=== PATIENT | male | born 1940 | race Caucasian/White ===

== ENCOUNTER 2016-06-28 10:01 | Outpatient (RCR) | payer MEDICARE ==
[~2016-06-28 10:01] MED LIST: ACHD5005 PO; ACYC800T PO; CYCL10TA9 PO; DOXY100C2 PO; FULVESTRANT 250 MG/5 ML SYR (CANCER CENTER) IM SCH; HCT25T; HYDR-2890 PO; LRT10T; NAPR-243 PO; PROP1TAB77; SULF-222 PO; [UNRECOGNIZED DRUG - OTHER]
== END 2016-07-25 09:30 | disposition home or self-care (01) ==
PROVIDERS: ATTEND Podiatrist
DX: Z47.1 Aftercare following joint replacement surgery (principal); Z96.661 Presence of right artificial ankle joint

== ENCOUNTER 2016-08-07 13:02 | Emergency (ER) | payer MEDICARE ==
[~2016-08-07] VITALS: Ht 182.9 cm; Wt 122.5 kg
[~2016-08-07 13:02] MED LIST changes: -FULVESTRANT 250 MG/5 ML SYR (CANCER CENTER) IM SCH
--- OUTSIDE RECORDS SUMMARY | 2016-08-07 13:07 | XMS REPORT | Continuity of Care Document ---
Author Author [facility] Organization [facility] Address Unknown Phone Unavailable Care Team Providers Care Farm Loan Inspector Name Role Phone NANCY ZEE DPM PCP Insurance Providers Payer Name Policy Number Subscriber Name Relationship [employer] [id number] [place] 18 Self / Same As Patient Advance Directives Directive Response Recorded Date/Time Advance Directives No 04/17/15 7:22am Health Care Power of District Recruiter No 04/17/15 7:22am Organ Donor No 04/17/15 7:22am Problems Active Problems Medical Problem Onset Date Status Contusion of left knee Unknown Acute Contusion of left thigh Unknown Acute Contusion, abdominal wall Unknown Acute Fall with injury Unknown Acute Wheezing Unknown Acute Medications Current Home Medications Medication Dose Units Route Directions Days/Qty Instructions Start Date Hydrochlorothiazide 25 Mg Daily 04/25/07 Loratadine 10 Mg Daily 04/25/07 Hydrocodone Bit/Acetaminophen 1 Each 1 Each Oral As Needed 30 11/22/11 Cyclobenzaprine Hcl (Flexeril) 10 Mg 1 Each Oral Twice A Day Acyclovir 800 Mg 800 Mg Oral As Directed 7 Days 5 times per day 09/16/13 Trimethoprim/Sulfamethoxazole 1 Ea 1 Ea Oral Twice A Day 7 Days Acetaminophen/Hydrocodone Bitart 1 Each 1 Each Oral Every 4HRS 15 Past Home Medications Medication Directions Ordered Status Naproxen 500 Mg Tablet, 1 Each Oral Twice A Day 09/13/12 Discontinued Doxycycline Hyclate (Vibramycin) 100 Mg Capsule, 1 Each Oral Twice A Day Discontinued Acetaminophen/Hydrocodone Bitart (Lorcet 5/325MG) 1 Tab Tablet, 1 - 2 Tab Oral Every 6 Hours 09/23/12 Discontinued Social History Social History Problem Response Recorded Date/Time Alcohol Use Occasionally Uses 03/09/2015 12:02pm Recreational Drug Use No 03/09/2015 12:02pm Recent Foreign Travel No 05/17/2016 10:08am Do you dip or chew tobacco? Yes 03/09/2015 12:02pm Hospital Discharge Instructions No hospital discharge instructions. Plan of Care Prescriptions See Medication Section Functional Status No functional status results. Allergies, Adverse Reactions, Alerts Allergen Type Severity Reaction Status Last Updated Morphine Allergy Unknown Active 04/25/07 Codeine Allergy Unknown Active 04/25/07 Immunizations No immunization records. Vital Signs No known vital signs results. Results No known relevant diagnostic tests, laboratory data and/or discharge summary. Procedures No known history of procedures. Encounters Encounter Location Arrival/Admit Date Discharge/Depart Date Attending Provider Discharged Recurring [facility] 06/28/16 10:01am 9:30am NANCY ZEE DPM
[2016-08-07] MEDS ORDERED: SERTRALINE (13:29)
[2016-08-07] MEDS ORDERED: METOPROLOL (13:29)
[2016-08-07] MEDS ORDERED: AMLODIPINE (13:29)
[2016-08-07] MEDS ORDERED: NAPROSYN (13:29)
[2016-08-07] MEDS ORDERED: HYDROCODONE/APAP (13:29)
[2016-08-07] MEDS ORDERED: GABAPENTIN (13:29)
[2016-08-07] MEDS ORDERED: fentaNYL INJECTION 100 MCG/2 ML AMP IVP STA (13:31)
--- NOTE | 2016-08-07 13:31 | ED EENT ---
History of Present Illness General Chief Complaint: Eye Problems Stated Complaint: DOUBLE VISION Nursing Triage Note: PT TO ED 8 W/ C/O DOUBLE VISION TO LT EYE ONSET X1 WK. DENIES INJURY. DOES REPORT HX OF LASIK. ALSO C/O PAIN TO LT SIDE OF FACE ALSO X1 WK. CONTINUES TO REPORT BILAT FACIAL NUMBNESS X1 YR Source: patient Exam Limitations: no limitations History of Present Illness Time seen by provider: 13:26 Initial Comments Patient presents with one week of double vision without any other Signs. He lives with his and she has not noted any slurring speech or having any facial asymmetry according to the patient. He is unaccompanied today to the ER. He did state he had some sinus pressure and pain and nasal congestion for the past 2-3 weeks that has progressively gotten worse and now he has pain in his left face and a little bit of swelling on the left side of. He denies fevers, nausea, vomiting, diarrhea, rash, ear pain. He does have ear fullness and little hard of hearing especially on the right side. He states the double vision came on progressively and is just continued to get worse starting sometime about 5-7 days ago. He denies any falls, problems with his gait, confusion, facial asymmetry, weakness, numbness, tingling, dysphagia. Patient takes [place] for his back pain and he took a dose this morning because of the pain but he still significantly having pain. Allergies and Home Medications Allergies Coded Allergies: codeine (Verified Allergy, Unknown, 04/25/07) morphine (Verified Allergy, Unknown, 04/25/07) Home Medications (Reported) (Reported) (Reported) (Reported) (Reported) (Reported) Amoxicillin/Potassium Clav 1 Each Tablet #18 1 EACH PO BID Prescribed by: YVAN MORALES on 08/07/16 1549 Review of Systems Constitutional: No chills, No diaphoresis, No fever, No malaise Eyes: Denies Blindness, Blurred VisionDenies Foreign Body Sensation, Denies Inflammation, Denies Pain, Denies Photophobia, Denies Previous Injury, Vision ChangesDenies Glasses Ears: Denies Dizziness, Denies Pain Nose: congestion paindenies purulent discharge Mouth: denies pain, denies swelling Throat: denies pain, denies swelling, denies neck stiffness, denies hoarse, denies painful swallowing, denies difficulty with fluids Respiratory: No cough, No phlegm, No wheezing Cardiovascular: No chest pain, No edema Gastrointestinal: No abdominal pain, No constipation, No diarrhea Musculoskeletal: back painNo joint pain Skin: No pruritus, No rash, other (swelling left side of face) Neurological: HeadacheDenies Numbness, Denies Paresthesia, Denies Seizure, Denies Tingling, Denies Weakness Past Rrfxvid-Vzuqpm-Xmmlft Hx Patient Social History Alcohol Use: Occasionally Uses Recreational Drug Use: No Smoking Status: Former Smoker Former Smoker/When Quit: Oct 05, 2010 Recent Foreign Travel: No Contact w/Someone Who Travel: No Recent Infectious Disease Expo: No Recent Hopitalizations: No Immunizations Up To Date Tetanus Booster (TDap): Unknown Date of Pneumonia Vaccine: Mar 19, 2012 Date of Influenza Vaccine: Mar 19, 2012 Seasonal Allergies Seasonal Allergies: Yes Surgeries HX Surgeries: Yes (BILAT KNEES, SHOULDER, HERNIA, ANKLE, APPY, LASIK) Surgeries: Abdominal, Appendectomy, Eye Surgery, Orthopedic Respiratory Hx Respiratory Disorders: No Cardiovascular Hx Cardiac Disorders: Yes Cardiac Disorders: Hypertension Neurological Hx Neurological Disorders: No Reproductive System Hx Reproductive Disorders: No Genitourinary Hx Genitourinary Disorders: No Genitourinary Disorders: Prostate Problems Gastrointestinal Hx Gastrointestinal Disorders: No Musculoskeletal Hx Musculoskeletal Disorders: Yes Musculoskeletal Disorders: Arthritis, Chronic Back Pain Endocrine Hx Endocrine Disorders: No HEENT HX ENT Disorders: No Cancer Hx Cancer: No Psychosocial Hx Psychiatric Problems: Yes Behavioral Health Disorders: Sleep Difficulties, Depression Integumentary HX Skin/Integumentary Disorder: No Blood Transfusions Hx Blood Disorders: No Family Medical History Significant Family History: No Pertinent Family Hx Visual Acuity : Eye Location: Bilaterally Vision Acuity Degree: 20/20 Physical Exam Vital Signs Vital Sign - Last 12Hours 08/07/16 13:22 Temp 98.1 Pulse 85 Resp 20 B/P 179/122 Pulse Ox 97 O2 Delivery Room Air General Appearance: WD/WN no apparent distress Eyes: right eye EOMI, left eye abnormal EOM (left eye no lateral or medial gaze. Vertical up-and-down works.), bilateral eye PERRL, bilateral eye normal inspection Ears: right ear other (sermon impaction), left ear TM normal, left ear canal normal, bilateral ear auricle normal Nose: normal inspectionNo active bleeding, sinus tenderness (left sided maxillary more than frontal; mild edema) Neck: non-tender full range of motion supple normal inspection Cardiovascular: normal peripheral pulses regular rate, rhythm no edema Respiratory: chest non-tender lungs clear normal breath sounds no respiratory distress no accessory muscle use Gastrointestinal: normal bowel sounds non tender soft Neurologic/Psychiatric: alteration specialist II-XII nml as tested alert oriented x 3 Skin: normal color warm/dry Progress/Results/Core Measures Results/Orders Lab Results Laboratory Tests Test 08/07/16 13:53 Range/Units Anion Gap 9 5-14 MMOL/L BUN/Creatinine Ratio 21 Basophils # (Auto) 0.0 0.0-0.1 10^3/uL Basophils (%) (Auto) 0 0-10 % Blood Urea Nitrogen 19 H 7-18 MG/DL Calcium Level 9.3 8.5-10.1 MG/DL Carbon Dioxide Level 28 21-32 MMOL/L Chloride Level 102 98-107 MMOL/L Creatinine 0.92 0.60-1.30 MG/DL Eosinophils # (Auto) 0.2 0.0-0.3 10^3/uL Eosinophils (%) (Auto) 2 0-10 % Estimat Glomerular Filtration Rate > 60 Glucose Level 115 H 70-105 MG/DL Hematocrit 41 40-54 % Hemoglobin 14.0 13.3-17.7 G/DL Lymphocytes # (Auto) 1.8 1.0-4.0 X 10^3 Lymphocytes (%) (Auto) 25 12-44 % Mean Corpuscular Hemoglobin 30 25-34 PG Mean Corpuscular Hemoglobin Concent 34 32-36 G/DL Mean Corpuscular Volume 86 80-99 FL Mean Platelet Volume 9.9 7.4-10.4 FL Monocytes # (Auto) 0.4 0.0-1.0 X 10^3 Monocytes (%) (Auto) 6 0-12 % Neutrophils # (Auto) 4.6 1.8-7.8 X 10^3 Neutrophils (%) (Auto) 66 42-75 % Platelet Count 183 130-400 10^3/uL Potassium Level 3.7 3.6-5.0 MMOL/L Red Blood Count 4.74 4.35-5.85 10^6/uL Red Cell Distribution Width 13.7 10.0-14.5 % Sodium Level 139 135-145 MMOL/L White Blood Count 6.9 4.3-11.0 10^3/uL My Orders Orders-YVAN MORALES Basic Metabolic Panel (08/07/16 13:31) Cbc With Automated Diff (08/07/16 13:31) Fentanyl Injection (Sublimaze Injection (08/07/16 13:31) Ct Head/Maxillofacial W Wo (08/07/16 14:08) Saline Lock/Iv-Start (08/07/16 14:25) Ns Iv 1000 Ml (Sodium Chloride 0.9%) (08/07/16 14:25) Iohexol Injection (Omnipaque 350 Mg/Ml 1 (08/07/16 14:30) Ns (Ivpb) (Sodium Chloride 0.9% Ivpb Bag (08/07/16 14:30) Ceftriaxone Injection (Rocephin Injectio (08/07/16 15:45) Dexamethasone Injection (Decadron Inject (08/07/16 15:45) Medications Given in ED Current Medications Medications Dose Ordered Sig/Kevin Route Start Time Stop Time Status Last Admin Dose Admin Ceftriaxone Sodium/Sodium Chloride 50 ml @ 100 mls/hr ONCE ONCE IV 08/07/16 15:45 08/07/16 16:14 DC 08/07/16 15:57 100 MLS/HR Dexamethasone Sodium Phosphate 4 mg ONCE ONCE IV 08/07/16 15:45 08/07/16 15:46 DC 08/07/16 15:56 4 MG Iohexol 100 ml ONCE ONCE IV 08/07/16 14:30 08/07/16 14:32 DC 08/07/16 14:46 100 ML Sodium Chloride 1,000 ml @ 0 mls/hr Q0M ONCE IV 08/07/16 14:25 08/07/16 14:26 DC 08/07/16 14:50 1,000 MLS/HR Sodium Chloride 100 ml 100 ml ONCE ONCE IV 08/07/16 14:30 08/07/16 14:32 DC 08/07/16 14:47 80 ML Vital Signs/I&O Vital Sign - Last 12Hours 08/07/16 13:22 Temp 98.1 Pulse 85 Resp 20 B/P 179/122 Pulse Ox 97 O2 Delivery Room Air Blood Pressure Mean: 141 Progress Note : Time: 13:43 Progress Note Concern for sinus infection causing some kind of local inflammation versus CVA or other neuropathies that is causing cranial nerve paralysis of number IV and . CT shows no orbital cellulitis or brain mass/inflammation. F/U with PCP. Diagnostic Imaging Diagonstic Imaging: CT Plain Films/CT/US/NM/MRI: head Comments Maxillary sinusitis left face. NAME: YULISA RAMOS [facility] REC#: [id number] PHYSICIAN: YVAN MORALES MD CC: THOMAS FRAIRE MD; YVAN MORALES Page 2 of 2 RADIOLOGY REPORT [facility] [place], [place] CC: THOMAS FRAIRE MD; YVAN MORALES Page 1 of 1 RADIOLOGY REPORT NAME: YULISA RAMOS [facility] REC#: [id number] PT STATUS: REG ER : 1940 PHYSICIAN: YVAN MORALES MD ADMIT DATE: 08/07/16/ER Signed Date of Exam: 08/07/16 CT HEAD/MAXILLOFACIAL W WO INDICATION: Double vision x 1 week. EXAMINATION: CT head and CT maxillofacial with and without contrast. FINDINGS: CT head: There is cortical atrophy. Ventricles are normal. There is no mass effect. No intracranial hemorrhage. No extra-axial fluid collection. Basal cisterns are normal. The mastoid air cells and paranasal sinuses are clear. Following IV contrast there is normal enhancement of the intracranial vessels. No enhancing masses are demonstrated. No evidence of enhancing aneurysms. IMPRESSION: Generalized atrophy, otherwise negative CT head with without contrast. CT maxillofacial: The orbital contents are symmetrical and appear normal. Optic nerves are uniform, bilaterally. The extraocular muscles are symmetrical with no hypertrophy. There are no retrobulbar masses. No pituitary masses are present. The paranasal sinuses are well-aerated with a few small polyps in the maxillary antrum, bilaterally. IMPRESSION: 1. Mild inflammatory changes noted of the maxillary sinuses. 2. The orbital contents appears normal, bilaterally, as described. Dictated by: Dictated on workstation # [id number] Dict: 08/07/16 1456 Trans: 08/07/16 1506 [facility] [id number] Interpreted by: THOMAS FRAIRE MD Electronically signed by:THOMAS FRAIRE MD 08/07/16 1508 Reviewed: Reviewed by Me Departure Impression Impression: Primary Impression: Sinusitis, acute maxillary Qualified Code: J01.00 - Acute maxillary sinusitis, unspecified Additional Impression: Amblyopia of left eye Disposition: 01 HOME, SELF-CARE Condition: Stable Departure-Patient Inst. Decision time for Depature: 15:45 Referrals: LALO LAMBERT DO (PCP/Family) Primary Care Physician Patient Instructions: Sinusitis, Adult (DC) Add. Discharge Instructions: Your double vision may be being caused by an acute sinusitis a you have been given a dose of antibiotics, Rocephin and Decadron, steroid. Tomorrow he should take Your oral antibiotics and taken to completion. You should also try to see your primary care physician tomorrow or the following day. If you have new or worsening symptoms should return to the ER or your primary care physician as appropriate. All discharge instructions reviewed with patient and/or family. Voiced understanding. Scripts Amoxicillin/Potassium Clav (Augmentin 875-125 Tablet)1 Each Tablet1 Each PO BID #18 TAB Ref 0 Prov:YVAN MORALES 08/07/16 Copy Copies To 1: LALO LAMBERT TITUS J Aug 07, 2016 13:31
[2016-08-07 14:01] LABS: BASOPHILS % (AUTO) 0 % (0-10); EOSINOPHILS # (AUTO) 0.2 10^3/uL (0.0-0.3); EOSINOPHILS % (AUTO) 2 % (0-10); LYMPHOCYTES # (AUTO) 1.8 X 10^3 (1.0-4.0); LYMPHOCYTES % (AUTO) 25 % (12-44); MEAN CORPUSCULAR HEMOGLOBIN 30 PG (25-34); MEAN CORPUSCULAR HGB CONC 34 G/DL (32-36); MEAN CORPUSCULAR VOLUME 86 FL (80-99); MEAN PLATELET VOLUME 9.9 FL (7.4-10.4); MONOCYTES # (AUTO) 0.4 X 10^3 (0.0-1.0); MONOCYTES % (AUTO) 6 % (0-12); NEUTROPHILS # (AUTO) 4.6 X 10^3 (1.8-7.8); NEUTROPHILS % (AUTO) 66 % (42-75); PLATELET COUNT 183 10^3/uL (130-400); RED BLOOD COUNT 4.74 10^6/uL (4.35-5.85); RED CELL DISTRIBUTION WIDTH 13.7 % (10.0-14.5); WHITE BLOOD COUNT 6.9 10^3/uL (4.3-11.0)
[2016-08-07 14:19] LABS: ANION GAP 9 MMOL/L (5-14); BLOOD UREA NITROGEN 19 MG/DL (7-18); BUN/CREATININE RATIO 21; CALCIUM 9.3 MG/DL (8.5-10.1); CARBON DIOXIDE 28 MMOL/L (21-32); CHLORIDE 102 MMOL/L (98-107); CREATININE SERUM 0.92 MG/DL (0.60-1.30); GFR ESTIMATED > 60; GLUCOSE 115 MG/DL (70-105); POTASSIUM 3.7 MMOL/L (3.6-5.0); SODIUM 139 MMOL/L (135-145)
[2016-08-07] MEDS ORDERED: NS IV 1000 ML 1,000 ML IV ONE (14:25)
[2016-08-07] MEDS ORDERED: NS 100 ML (IVPB) BAG IV ONE (14:30)
[2016-08-07] MEDS ORDERED: IOHEXOL 350 MG/ML 100 ML (OMNIPAQUE 350) VIAL IV ONE (14:30)
--- NOTE | 2016-08-07 15:05 | Diagnostic Imaging Report ---
INDICATION: Double vision x 1 week. EXAMINATION: CT head and CT maxillofacial with and without contrast. FINDINGS: CT head: There is cortical atrophy. Ventricles are normal. There is no mass effect. No intracranial hemorrhage. No extra-axial fluid collection. Basal cisterns are normal. The mastoid air cells and paranasal sinuses are clear. Following IV contrast there is normal enhancement of the intracranial vessels. No enhancing masses are demonstrated. No evidence of enhancing aneurysms. IMPRESSION: Generalized atrophy, otherwise negative CT head with without contrast. CT maxillofacial: The orbital contents are symmetrical and appear normal. Optic nerves are uniform, bilaterally. The extraocular muscles are symmetrical with no hypertrophy. There are no retrobulbar masses. No pituitary masses are present. The paranasal sinuses are well-aerated with a few small polyps in the maxillary antrum, bilaterally. IMPRESSION: 1. Mild inflammatory changes noted of the maxillary sinuses. 2. The orbital contents appears normal, bilaterally, as described. Dictated by: Dictated on workstation # [id number]
[2016-08-07] MEDS ORDERED: cefTRIAXone INJECTION 1,000 MG in NS (IVPB) 50 ML IV ONE (15:45)
[2016-08-07] MEDS ORDERED: DEXAMETHASONE 4 MG/ML SDV (DECADRON) IV ONE (15:45)
[2016-08-07] MEDS ORDERED: AMOX-358 PO (15:49)
[2016-08-07 16:10] VITALS: BP 173/99
== END 2016-08-07 16:14 | disposition home or self-care (01) ==
LOC: EDUNIT# 13:02 → ER 13:04
DX: J01.00 Acute maxillary sinusitis, unspecified (principal); H53.2 Diplopia; I10 Essential (primary) hypertension; Z79.899 Other long term (current) drug therapy
CPT/HCPCS: 36415; 70470; 70488; 80048; 85025; 96374; 96375

== ENCOUNTER 2017-09-28 20:30 | Emergency (ER) | payer MEDICARE ==
[~2017-09-28] VITALS: Ht 185.4 cm; Wt 127.0 kg
[~2017-09-28 20:30] MED LIST changes: +AMLODIPINE; +AMOX-358 PO; +GABAPENTIN; +HYDROCODONE/APAP; +METOPROLOL; +NAPROSYN; +SERTRALINE
--- OUTSIDE RECORDS SUMMARY | 2017-09-28 20:36 | XMS REPORT | Continuity of Care Document ---
Author Author [facility] Organization [facility] Address Unknown Phone Unavailable Allergies Active Description Code Type Severity Reaction Onset Reported/Identified Relationship to Patient Clinical Status Yes codeine [id number] Drug Allergy Unknown N/A 04/25/2007 Yes morphine [id number] Drug Allergy Unknown N/A 04/25/2007 Medications There is no data. 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 11/22/2011 Ot 845.00 11/22/2011 Ot 959.7 11/22/2011 Ot E000.8 11/22/2011 Ot E849.0 11/22/2011 Ot E927.0 09/13/2012 Ot 276.8 HYPOPOTASSEMIA 09/13/2012 Ot 461.9 ACUTE SINUSITIS NOS 09/13/2012 Ot 729.82 CRAMP IN LIMB 09/13/2012 Ot 786.2 COUGH 09/13/2012 Ot V58.69 OTH MED,LT, CURRENT USE 09/23/2012 Ot 824.8 FX ANKLE NOS- CLOSED 09/23/2012 Ot 847.2 SPRAIN LUMBAR REGION 09/23/2012 Ot 959.7 LOWER LEG INJURY NOS 09/23/2012 Ot E000.8 OTHER EXTERNAL CAUSE STATUS 09/23/2012 Ot E016.9 OTH ACT INVG PROPERTY LAND MAINT,BUILD 09/23/2012 Ot E849.0 ACCIDENT IN HOME 09/23/2012 Ot E928.9 ACCIDENT NOS 04/12/2013 EMELY PERALES MD Ot V43.61 SHOULDER JOINT REPLACEMENT STATUS 04/12/2013 EMELY PERALES MD Ot V54.81 AFTERCARE FOLLOWING JOINT REPLACEMENT 04/12/2013 EMELY PERALES MD Ot V57.1 PHYSICAL THERAPY NEC 09/16/2013 VIRGIL MOORE, PROSPER Verde Ot 729.5 PAIN IN LIMB 09/16/2013 VIRGIL MOORE, PROSPER Verde Ot 782.1 NONSPECIF SKIN ERUPT NEC 09/26/2013 BEKAH DEGROOT DO Ot 845.00 SPRAIN OF ANKLE NOS 09/26/2013 BEKAH DEGROOT DO Ot 959.7 LOWER LEG INJURY NOS 09/26/2013 BEKAH DEGROOT DO Ot E000.8 OTHER EXTERNAL CAUSE STATUS 09/26/2013 BEKAH DEGROOT DO Ot E016.9 OTH ACT INVG PROPERTY LAND MAINT,BUILD 09/26/2013 BEKAH DEGROOT DO Ot E849.0 ACCIDENT IN HOME 09/26/2013 BEKAH DEGROOT DO Ot E927.0 OVEREXERTION FROM SUDDEN STRENUOUS MOVEM 10/29/2014 Ot 368.2 10/29/2014 Ot 473.0 10/29/2014 Ot 715.35 10/29/2014 Ot 719.47 11/25/2014 TATIANNA MOORE, EMELY Drake Ot 724.00 11/25/2014 TATIANNA MOORE, EMELY Drake Ot 724.3 11/25/2014 TATIANNA MOORE, EMELY Drake Ot V57.1 11/25/2014 TATIANNA MOORE, EMELY Drake Ot 724.00 11/25/2014 TATIANNA MOORE, EMELY Drake Ot 724.3 11/25/2014 TATIANNA MOORE, EMELY Drake Ot V57.1 12/03/2014 TATIANNA MOORE, EMELY Drake Ot 724.00 12/03/2014 TATIANNA MOORE, EMELY Drake Ot 724.3 12/03/2014 TATIANNA MOORE, EMELY Drake Ot V57.1 01/09/2015 TATIANNA MOORE, EMELY Drake Ot 724.00 01/09/2015 TATIANNA MOORE, EMELY Drake Ot 724.3 01/09/2015 TATIANNA MOORE, EMELY Drake Ot V57.1 02/12/2015 TATIANNA MOORE, EMELY Drake Ot 724.00 SPINAL STENOSIS NOS 02/12/2015 TATIANNA MOORE, EMELY Drake Ot 724.3 SCIATICA 02/12/2015 TATIANNA MOORE, EMELY Drake Ot V57.1 PHYSICAL THERAPY NEC 03/09/2015 VIRGIL MOORE, PROSPER Verde Ot 786.07 WHEEZING 03/09/2015 PROSPER HERMAN MD Ot 922.2 CONTUSION ABDOMINAL WALL 03/09/2015 PROSPER HERMAN MD Ot 924.00 CONTUSION OF THIGH 03/09/2015 PROSPER HERMAN MD Ot 924.11 CONTUSION OF KNEE 03/09/2015 PROSPER HERMAN MD Ot 959.7 LOWER LEG INJURY NOS 03/09/2015 PROSPER HERMAN MD Ot E000.8 OTHER EXTERNAL CAUSE STATUS 03/09/2015 PROSPER HERMAN MD Ot E849.7 ACCID IN RESIDENT INSTIT 03/09/2015 PROSPER HERMAN MD Ot E888.8 FALL NEC 03/09/2015 Ot 368.2 03/09/2015 Ot 473.0 03/09/2015 Ot 715.35 03/09/2015 Ot 719.47 03/13/2015 HEATH PRESCOTT MD Ot 721.3 LUMBOSACRAL SPONDYLOSIS 03/13/2015 HEATH PRESCOTT MD Ot 722.52 LUMB/LUMBOSAC DISC DEGEN 03/13/2015 HEATH PRESCOTT MD Ot M47.896 OTHER SPONDYLOSIS, LUMBAR REGION 03/13/2015 HEATH PRESCOTT MD Ot M51.36 OTHER INTERVERTEBRAL DISC DEGENERATION, 03/13/2015 HEATH PRESCOTT MD Ot V58.69 OTH MED,LT,CURRENT USE 03/13/2015 HEATH PRESCOTT MD Ot Z79.899 OTHER HOSPITAL ATTENDANT (CURRENT) DRUG THERAPY 04/01/2015 JE NINO NP Ot 721.3 04/01/2015 JE NINO NP Ot 723.1 04/01/2015 JE NINO NP Ot 781.2 04/06/2015 Ot 368.2 04/06/2015 Ot 473.0 04/06/2015 Ot 715.35 04/06/2015 Ot 719.47 04/06/2015 JE NINO NP Ot 721.3 04/06/2015 JE NINO NP Ot 723.1 04/06/2015 JE NINO NP Ot 781.2 04/17/2015 HEATH PRESCOTT MD Ot M47.816 SPONDYLOSIS W/O MYELOPATHY OR RADICULOPA 04/17/2015 HEATH PRESCOTT MD Ot M51.26 OTHER INTERVERTEBRAL DISC DISPLACEMENT, 04/17/2015 HEATH PRESCOTT MD Ot Z79.899 OTHER HOSPITAL ATTENDANT (CURRENT) DRUG THERAPY 06/10/2015 Ot 715.35 06/10/2015 Ot 719.47 06/10/2015 SAWYERFLAVIA DESIGN/ANIMATION INSTRUCTOR, JE J Ot 721.3 06/10/2015 [facility] JE J Ot 723.1 06/10/2015 [facility] DES[facility]/ANIMATION INSTRUCTOR, JE J Ot 781.2 06/25/2015 Ot 715.35 06/25/2015 Ot 719.47 06/25/2015 SAWYERFLAVIA DESIGN/ANIMATION INSTRUCTOR, JE J Ot 721.3 06/25/2015 [facility] DESIGN/ANIMATION INSTRUCTOR, JE J Ot 723.1 06/25/2015 TRUNG DESIGN/ANIMATION INSTRUCTOR, JE J Ot 781.2 05/26/2016 BLANCHO DPM, NANCY Drake Ot Z47.1 AFTERCARE FOLLOWING JOINT REPLACEMENT HIGGINS 05/26/2016 BLANCHO DPM, NANCY Drake Ot 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 06/16/2016 BLANCHO DPM, NANCY Drake Ot Z47.1 AFTERCARE FOLLOWING JOINT REPLACEMENT HIGGINS 06/16/2016 BLANCHO DPM, NANCY Drake Ot 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 07/25/2016 BLANCHO DPM, NANCY Drake Ot Z47.1 AFTERCARE FOLLOWING JOINT REPLACEMENT HIGGINS 07/25/2016 BLANCHO DPM, NANCY Drake Ot 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 08/07/2016 YVAN MORALES MD Ot H53.2 DIPLOPIA 08/07/2016 YVAN MORALES MD Ot I10 ESSENTIAL (PRIMARY) HYPERTENSION 08/07/2016 YVAN MORALES MD Ot J01.00 ACUTE MAXILLARY SINUSITIS, UNSPECIFIED 08/07/2016 YVAN MORALES MD Ot Z79.899 OTHER SNF (CURRENT) DRUG THERAPY 08/09/2016 YVAN MORALES MD Ot H53.2 DIPLOPIA 08/09/2016 YVAN MORALES MD Ot I10 ESSENTIAL (PRIMARY) HYPERTENSION 08/09/2016 YVAN MORALES MD, Ot J01.00 ACUTE MAXILLARY SINUSITIS, UNSPECIFIED 08/09/2016 YVAN MORALES MD Ot Z79.899 OTHER HOSPITAL ATTENDANT (CURRENT) DRUG THERAPY 08/11/2016 YVAN MORALES MD Ot H53.2 DIPLOPIA 08/11/2016 YVAN MORALES MD Ot I10 ESSENTIAL (PRIMARY) HYPERTENSION 08/11/2016 YVAN MORALES MD Ot J01.00 ACUTE MAXILLARY SINUSITIS, UNSPECIFIED 08/11/2016 YVAN MORALES MD Ot Z79.899 OTHER SNF (CURRENT) DRUG THERAPY 09/28/2017 Ot 719.47 JOINT PAIN- ANKLE 09/28/2017 TRUNG DESIGN/ANIMATION INSTRUCTOR, JE J Ot 721.3 LUMBOSACRAL SPONDYLOSIS 09/28/2017 TRUNG DESIGN/ANIMATION INSTRUCTOR, JE Nestor Ot 723.1 CERVICALGIA 09/28/2017 TRUNG JENKINS, JE Nestor Ot 781.2 ABNORMALITY OF GAIT Procedures There is no data. Results Test Result Range Complete blood count (CBC) with automated white blood cell (WBC) differential - 08/07/16 13:53 Blood leukocytes automated count (number/volume) 6.9 10*3/uL 4.3-11.0 Blood erythrocytes automated count (number/volume) 4.74 10*6/uL 4.35-5.85 Venous blood hemoglobin measurement (mass/volume) 14.0 g/dL 13.3-17.7 Blood hematocrit (volume fraction) 41 % 40-54 Automated erythrocyte mean corpuscular volume 86 [foz_us] 80-99 Automated erythrocyte mean corpuscular hemoglobin (mass per erythrocyte) 30 pg 25-34 Automated erythrocyte mean corpuscular hemoglobin concentration measurement ( mass/volume) 34 g/dL 32-36 Automated erythrocyte distribution width ratio 13.7 % 10.0-14.5 Automated blood platelet count (count/volume) 183 10*3/uL 130-400 Automated blood platelet mean volume measurement 9.9 [foz_us] 7.4-10.4 Automated blood neutrophils/100 leukocytes 66 % 42-75 Automated blood lymphocytes/100 leukocytes 25 % 12-44 Blood monocytes/100 leukocytes 6 % 0-12 Automated blood eosinophils/100 leukocytes 2 % 0-10 Automated blood basophils/100 leukocytes 0 % 0-10 Blood neutrophils automated count (number/volume) 4.6 10*3 1.8-7.8 Blood lymphocytes automated count (number/volume) 1.8 10*3 1.0-4.0 Blood monocytes automated count (number/volume) 0.4 10*3 0.0-1.0 Automated eosinophil count 0.2 10*3/uL 0.0-0.3 Automated blood basophil count (count/volume) 0.0 10*3/uL 0.0-0.1 Whole blood basic metabolic panel - 08/07/16 13:53 Serum or plasma sodium measurement (moles/volume) 139 mmol/L 135-145 Serum or plasma potassium measurement (moles/volume) 3.7 mmol/L 3.6-5.0 Serum or plasma chloride measurement (moles/volume) 102 mmol/L 98-107 Carbon dioxide 28 mmol/L 21-32 Serum or plasma anion gap determination (moles/volume) 9 mmol/L 5-14 Serum or plasma urea nitrogen measurement (mass/volume) 19 mg/dL 7-18 Serum or plasma creatinine measurement (mass/volume) 0.92 mg/dL 0.60-1.30 Serum or plasma urea nitrogen/creatinine mass ratio 21 NRG Serum or plasma creatinine measurement with calculation of estimated glomerular filtration rate > NRG Serum or plasma glucose measurement (mass/volume) 115 mg/dL 70-105 Serum or plasma calcium measurement (mass/volume) 9.3 mg/dL 8.5-10.1 Encounters ACCT No. Visit Date/Time Discharge Status Pt. Type Provider Facility Loc./Unit Complaint [id number] 08/07/2016 13:04:00 08/07/2016 16:14:00 DIS Emergency YVAN MORALES MD [facility] ER DOUBLE VISION [id number] 06/28/2016 10:01:00 07/25/2016 09:30:00 DIS Outpatient NANCY ZEE DPM [facility] REHAB ANKLE REPLACEMENT R LE [id number] 04/17/2015 07:14:00 04/17/2015 08:04:00 DIS Outpatient HEATH PRESCOTT MD [facility] CARD DISC DISPLACEMENT [id number] 03/13/2015 08:01:00 03/13/2015 08:41:00 DIS Outpatient HEATH PRESCOTT MD J [facility] CARD DDD LUMBAR [id number] 03/09/2015 10:00:00 03/09/2015 23:59:59 CLS Outpatient TRUNG JENKINS, JE Baez [facility] RAD ABNORMALITY OF GAIT [id number] 03/09/2015 12:04:00 03/09/2015 15:09:00 DIS Emergency VIRGIL MOORE, PROSPER Verde [facility] ER FALL LEFT HIP/KNEE PAIN [id number] 01/21/2015 10:22:00 02/12/2015 15:15:00 DIS Outpatient EMELY CAMPUZANO MD [facility] REHAB SCIATICA;SPINAL STENOSIS [id number] 09/26/2013 14:53:00 09/26/2013 16:56:00 DIS Emergency BEKAH DEGROOT DO [facility] ER RIGHT ANKLE INJURY [id number] 09/16/2013 11:39:00 09/16/2013 12:32:00 DIS Emergency VIRGIL MOORE, PROSPER Verde [facility] ER LEFT HAND PAIN/ SWELLING [id number] 03/18/2013 10:37:00 04/12/2013 14:00:00 DIS Outpatient EMELY PERALES MD [facility] REHAB RT TOTAL SHOULDER [id number] 09/28/2017 20:31:00 ACT Emergency BEKAH DEGROOT DO [facility] ER L ANKLE AND R SIDE LOWER BACK PAIN [id number] 10/02/2012 11:38:00 Document Registration [id number] 09/23/2012 09:31:00 Document Registration [id number] 09/13/2012 08:21:00 Document Registration [id number] 11/22/2011 11:55:00 Document Registration [id number] 12/28/2010 11:07:00 Document Registration [id number] 11/26/2009 10:31:00 Document Registration [id number] 03/13/2015 08:01:55 ACT Document Registration
[2017-09-28] MEDS ORDERED: TRAM50TA2 PO (20:45)
[2017-09-28] MEDS ORDERED: KETOROLAC 30 MG/ML VIAL IVP ONE (20:45)
--- NOTE | 2017-09-28 20:51 | ED General ---
General Chief Complaint: General Problems/Pain Stated Complaint: L ANKLE AND R SIDE LOWER BACK PAIN Nursing Triage Note: pt presents to er with complaint of lower back pain and left ankle pain. states hes had the back pain for 2-3 days and the ankle has bothered him for the last 6-[address] lambert for the ankle. Nursing Sepsis Screen: No Definite Risk Source of Information: Patient Exam Limitations: No Limitations History of Present Illness Date Seen by Provider: Sep 28, 2017 Time Seen by Provider: 20:48 Initial Comments To ER with reports of low back pain chronic but worse than usual for the past few days. No fevers or chills, no saddle anesthesia, no bowel or urinary incontinence. Also has some pain to the left lower leg and foot. However, when he further elaborates (which is somewhat difficult to elucidate from him) the pain is described as a numbness and tingling sensation from the mid calves distally and circumferentially bilaterally and he also states that his hands and distal forearms feel numb and tingly. He denies fevers or chills. He is on gabapentin. Severity: Moderate Associated Systoms: No Fever/Chills, No Nausea/Vomiting Allergies and Home Medications Allergies Coded Allergies: codeine (Verified Allergy, Unknown, 04/25/07) morphine (Verified Allergy, Unknown, 04/25/07) Home Medications Hydrocodone/Acetaminophen 1 Each Tablet, 1 EACH PO Q4H PRN for PAIN-MODERATE Prescribed by: JENISE LONDONO on 09/28/17 [id number] Patient Home Medication List Home Medication List Reviewed: Yes Review of Systems Constitutional: see HPI EENTM: see HPI Respiratory: no symptoms reported Cardiovascular: no symptoms reported Genitourinary: no symptoms reported Musculoskeletal: see HPI Skin: no symptoms reported Psychiatric/Neurological: No Symptoms Reported Hematologic/Lymphatic: No Symptoms Reported Immunological/Allergic: no symptoms reported Past Iegekde-Yubdnd-Numhxm Hx Patient Social History Alcohol Use: Occasionally Uses Recreational Drug Use: No Smoking Status: Current Someday Smoker Type Used: Cigarettes, Smokeless Tobacco Former Smoker, Quit: Jun 19, 2016 Recent Foreign Travel: No Contact w/Someone Who Travel: No Recent Infectious Disease Expo: No Recent Hopitalizations: No Immunizations Up To Date Tetanus Booster (TDap): Unknown Date of Pneumonia Vaccine: Mar 19, 2012 Date of Influenza Vaccine: Mar 19, 2012 Seasonal Allergies Seasonal Allergies: Yes Past Medical History Surgeries: Yes (BILAT KNEES, SHOULDER, HERNIA, ANKLE, APPY, LASIK) Abdominal, Appendectomy, Eye Surgery, Orthopedic Respiratory: No Cardiac: Yes Hypertension Neurological: No Reproductive Disorders: No Prostate Problems Gastrointestinal: No Musculoskeletal: Yes Arthritis, Chronic Back Pain Endocrine: No Cancer: No Psychosocial: Yes Sleep Difficulties, Depression Integumentary: No Blood Disorders: No Family Medical History No Pertinent Family Hx Physical Exam Vital Signs Vital Signs - First Documented 09/28/17 20:37 Temp 97.8 Pulse 70 Resp 20 B/P (MAP) 184/114 (137) Pulse Ox 95 O2 Delivery Room Air Capillary Refill : Less Than 3 Seconds General Appearance: No Apparent Distress, WD/WN, Obese Eyes: Bilateral Eye Normal Inspection, Bilateral Eye PERRL, Bilateral Eye EOMI HEENT: PERRL/EOMI, TMs Normal Neck: Full Range of Motion, Normal Inspection Respiratory: No Accessory Muscle Use, No Respiratory Distress Cardiovascular: Regular Rate, Rhythm, Normal Peripheral Pulses Gastrointestinal: Normal Bowel Sounds, Non Tender, Soft Extremity: Normal Capillary Refill, Normal Inspection Neurologic/Psychiatric: Alert, Oriented x3, No Motor/Sensory Deficits Skin: Normal Color, Warm/Dry Comments Bilateral lower extremities are warm to the touch with brisk capillary refill less than 3 seconds. There is a palpable 2+ and strength dorsalis pedis pulse on the left. There is not a palpable pulse on the right however this may be secondary to prior surgery and subsequent anatomic changes as there is an old scar over the anterior ankle and foot he states he's had this operated on. Additionally, the right foot is just as warm as the left foot with capillary refill just as brisk as the left. Progress/Results/Core Measures Suspected Sepsis Recent Fever Within 48 Hours: No Infection Criteria Present: None New/Unexplained Altered Menta: No Sepsis Screen: No Definite Risk SIRS Temperature:97.8 Pulse: 70 Respiratory Rate: 20 Laboratory Tests 09/28/17 20:42: White Blood Count 5.7 Blood Pressure 184 /114 Mean: 137 Laboratory Tests 09/28/17 20:42: Creatinine 1.21, Platelet Count 187, Total Bilirubin 0.4 Results/Orders Lab Results Laboratory Tests Test 09/28/17 20:42 09/28/17 20:52 Range/Units White Blood Count 5.7 4.3-11.0 10^3/uL Red Blood Count 4.14 L 4.35-5.85 10^6/uL Hemoglobin 12.3 L 13.3-17.7 G/DL Hematocrit 36 L 40-54 % Mean Corpuscular Volume 88 80-99 FL Mean Corpuscular Hemoglobin 30 25-34 PG Mean Corpuscular Hemoglobin Concent 34 32-36 G/DL Red Cell Distribution Width 13.0 10.0-14.5 % Platelet Count 187 130-400 10^3/uL Mean Platelet Volume 9.2 7.4-10.4 FL Neutrophils (%) (Auto) 51 42-75 % Lymphocytes (%) (Auto) 37 12-44 % Monocytes (%) (Auto) 9 0-12 % Eosinophils (%) (Auto) 3 0-10 % Basophils (%) (Auto) 0 0-10 % Neutrophils # (Auto) 2.9 1.8-7.8 X 10^3 Lymphocytes # (Auto) 2.1 1.0-4.0 X 10^3 Monocytes # (Auto) 0.5 0.0-1.0 X 10^3 Eosinophils # (Auto) 0.2 0.0-0.3 10^3/uL Basophils # (Auto) 0.0 0.0-0.1 10^3/uL Erythrocyte Sedimentation Rate 15 0-30 MM/HR Sodium Level 135 135-145 MMOL/L Potassium Level 3.6 3.6-5.0 MMOL/L Chloride Level 97 L 98-107 MMOL/L Carbon Dioxide Level 28 21-32 MMOL/L Anion Gap 10 5-14 MMOL/L Blood Urea Nitrogen 15 7-18 MG/DL Creatinine 1.21 0.60-1.30 MG/DL Estimat Glomerular Filtration Rate 58 BUN/Creatinine Ratio 12 Glucose Level 109 H 70-105 MG/DL Calcium Level 9.4 8.5-10.1 MG/DL Total Bilirubin 0.4 0.1-1.0 MG/DL Aspartate Amino Transf (AST/SGOT) 20 5-34 U/L Alanine Aminotransferase (ALT/SGPT) 11 0-55 U/L Alkaline Phosphatase 62 40-136 U/L Total Protein 6.8 6.4-8.2 GM/DL Albumin 3.8 3.2-4.5 GM/DL Thyroid Stimulating Hormone (TSH) 1.72 0.35-4.94 UIU/ML Free Thyroxine 1.01 0.70-1.48 NG/DL Serum Alcohol < 10 <10 MG/DL Urine Color YELLOW Urine Clarity CLEAR Urine pH 6 5-9 Urine Specific [place] 1.010 L 1.016-1.022 Urine Protein NEGATIVE NEGATIVE Urine Glucose (UA) NEGATIVE NEGATIVE Urine Ketones NEGATIVE NEGATIVE Urine Nitrite NEGATIVE NEGATIVE Urine Bilirubin NEGATIVE NEGATIVE Urine Urobilinogen NORMAL NORMAL MG/DL Urine Leukocyte Esterase NEGATIVE NEGATIVE Urine RBC (Auto) NEGATIVE NEGATIVE Urine RBC NONE /HPF Urine WBC RARE /HPF Urine Crystals NONE /LPF Urine Bacteria NEGATIVE /HPF Urine Casts NONE /LPF Urine Mucus NEGATIVE /LPF Urine Culture Indicated NO My Orders Orders - JENISE LONDONO APRN Cbc With Automated Diff (09/28/17 20:42) Comprehensive Metabolic Panel (09/28/17 20:42) Ua Culture If Indicated (09/28/17 20:42) Saline Lock/Iv-Start (09/28/17 20:42) Ketorolac Injection (Toradol Injection) (09/28/17 20:45) Thyroid Stimulating Hormone (09/28/17 20:44) Vitamin B 12 (09/28/17 20:44) Free T4 (Free Thyroxine) (09/28/17 20:44) Hemoglobin A1c (09/28/17 20:44) Erythrocyte Sedimentation Rate (09/28/17 20:47) Alcohol (09/28/17 20:47) Orphenadrine Injection (Norflex Injectio (09/28/17 21:45) Clonidine Tablet (Catapres Tablet) (09/28/17 21:45) Rx-Hydrocodone/Apap 5-325 Mg (Rx-Vicodin (09/28/17 22:00) Medications Given in ED Current Medications Medications Dose Ordered Sig/Kevin Route Start Time Stop Time Status Last Admin Dose Admin Ketorolac Tromethamine 15 mg ONCE ONCE IVP 09/28/17 20:45 09/28/17 20:46 DC 09/28/17 20:48 15 MG Vital Signs/I&O 09/28/17 20:37 Temp 97.8 Pulse 70 Resp 20 B/P (MAP) 184/114 (137) Pulse Ox 95 O2 Delivery Room Air Capillary Refill : Less Than 3 Seconds Blood Pressure Mean: 137 Departure Impression Primary Impression: Low back pain Additional Impression: Peripheral neuropathy Disposition: 01 HOME, SELF-CARE Condition: Stable Departure-Patient Inst. Decision time for Depature: 21:40 Referrals: LALO LAMBERT DO (PCP/Family) Primary Care Physician Patient Instructions: Low Back Pain (DC), Peripheral Neuropathy Add. Discharge Instructions: 1. Follow-up with Dr. Lambert within 7 days for recheck and further evaluation of your low back pain which will likely include some imaging studies. Return to ER for any fevers, loss of bowel or bladder control, numbness of your genitals or other concerns. 2. Stop the tramadol and start the new pain medication All discharge instructions reviewed with patient and/or family. Voiced understanding. Scripts Hydrocodone/Acetaminophen ([place] 5-325 Tablet) 1 Each Tablet 1 EACH PO Q4H PRN for PAIN-MODERATE, #20 TAB Prov: JENISE LONDONO APRN 09/28/17 Copy Copies To 1: LALO LAMBERT PETER J APRN Sep 28, 2017 20:51
[2017-09-28 20:55] LABS: BASOPHILS % (AUTO) 0 % (0-10); EOSINOPHILS # (AUTO) 0.2 10^3/uL (0.0-0.3); EOSINOPHILS % (AUTO) 3 % (0-10); HEMATOCRIT 36 % (40-54); HEMOGLOBIN 12.3 G/DL (13.3-17.7); LYMPHOCYTES # (AUTO) 2.1 X 10^3 (1.0-4.0); LYMPHOCYTES % (AUTO) 37 % (12-44); MEAN CORPUSCULAR HEMOGLOBIN 30 PG (25-34); MEAN CORPUSCULAR HGB CONC 34 G/DL (32-36); MEAN CORPUSCULAR VOLUME 88 FL (80-99); MEAN PLATELET VOLUME 9.2 FL (7.4-10.4); MONOCYTES # (AUTO) 0.5 X 10^3 (0.0-1.0); MONOCYTES % (AUTO) 9 % (0-12); NEUTROPHILS # (AUTO) 2.9 X 10^3 (1.8-7.8); NEUTROPHILS % (AUTO) 51 % (42-75); PLATELET COUNT 187 10^3/uL (130-400); RED BLOOD COUNT 4.14 10^6/uL (4.35-5.85); WHITE BLOOD COUNT 5.7 10^3/uL (4.3-11.0)
[2017-09-28 20:58] LABS: BILIRUBIN,URINE NEGATIVE (NEGATIVE); CLARITY,URINE CLEAR; COLOR,URINE YELLOW; GLUCOSE, URINE (UA) NEGATIVE (NEGATIVE); KETONES,URINE NEGATIVE (NEGATIVE); LEUKOCYTE ESTERASE ,URINE NEGATIVE (NEGATIVE); NITRITE,URINE NEGATIVE (NEGATIVE); PH,URINE 6 (5-9); PROTEIN,URINE NEGATIVE (NEGATIVE); UROBILINOGEN,URINE NORMAL (NORMAL)
[2017-09-28 21:13] LABS: BACTERIA,URINE NEGATIVE /HPF; WBC,URINE RARE /HPF
[2017-09-28 21:15] LABS: ALANINE AMINOTRANSFERASE 11 U/L (0-55); ALBUMIN 3.8 GM/DL (3.2-4.5); ALKALINE PHOSPHATASE 62 U/L (40-136); BILIRUBIN,TOTAL 0.4 MG/DL (0.1-1.0); CALCIUM 9.4 MG/DL (8.5-10.1); CARBON DIOXIDE 28 MMOL/L (21-32); CHLORIDE 97 MMOL/L (98-107); GLUCOSE 109 MG/DL (70-105); POTASSIUM 3.6 MMOL/L (3.6-5.0); SODIUM 135 MMOL/L (135-145); TOTAL PROTEIN 6.8 GM/DL (6.4-8.2)
[2017-09-28 21:20] LABS: ERYTHROCYTE SEDIMENTATION RATE 15 MM/HR (0-30)
[2017-09-28 21:35] LABS: FREE T4 (FREE THYROXINE) 1.01 NG/DL (0.70-1.48)
[2017-09-28 21:36] LABS: BUN/CREATININE RATIO 12; CREATININE SERUM 1.21 MG/DL (0.60-1.30); GFR ESTIMATED 58
[2017-09-28] MEDS ORDERED: ORPHENADRINE 60 MG/2 ML (NORFLEX) AMP IV ONE (21:45)
[2017-09-28] MEDS ORDERED: cloNIDine 0.1 MG (CATAPRES) TAB PO ONE (21:45)
[2017-09-28] MEDS ORDERED: HYDR-757 PO (21:46)
[2017-09-28] MEDS ORDERED: RX-HYDROCODONE/APAP 5/325 MG #4 TAB PK PO PRN (22:00)
[2017-09-28 22:23] VITALS: BP 176/101
== END 2017-09-28 22:23 | disposition home or self-care (01) ==
LOC: EDUNIT# 20:30 → ER 20:31
DX: M54.5 Low back pain (principal); G62.9 Polyneuropathy, unspecified; I10 Essential (primary) hypertension; F32.9 Major depressive disorder, single episode, unspecified; Z90.49 Acquired absence of other specified parts of digestive tract; Z87.19 Personal history of other diseases of the digestive system; Z87.891 Personal history of nicotine dependence; Z88.5 Allergy status to narcotic agent
CPT/HCPCS: 36415; 80053; 80320; 81000; 82607; 83036; 84439; 84443; 85025; 85652; 96374; 96375

== ENCOUNTER 2018-05-12 14:47 | Observation (INO) | payer MEDICARE ==
[2018-05-12] VITALS (11 sets, daily range): BP systolic 118–163; BP diastolic 75–101
[~2018-05-12] VITALS: Ht 188 cm; Wt 129.7 kg
[~2018-05-12 14:47] MED LIST changes: +HYDR-4226 PO; +TRAM50TA2 PO
--- OUTSIDE RECORDS SUMMARY | 2018-05-12 14:53 | XMS REPORT | Clinical Summary ---
Author Author [facility] Organization [facility] Address Unknown Phone Unavailable Care Team Providers Care Technical Support Analyst Name Role Phone PCP Unavailable Allergies Not on File Current Medications Not on file Active Problems Not on file Social History Tobacco Use Types Packs/Day Years Used Date Never Assessed Sex Assigned at Date Recorded Not on file Last Filed Vital Signs Not on file Plan of Treatment Not on file Results Not on filefrom Last 3 Months
[2018-05-12 15:11] LABS: BASOPHILS % (AUTO) 0 % (0-10); EOSINOPHILS % (AUTO) 0 % (0-10); HEMATOCRIT 39 % (40-54); HEMOGLOBIN 13.3 G/DL (13.3-17.7); LYMPHOCYTES # (AUTO) 0.5 X 10^3 (1.0-4.0); LYMPHOCYTES % (AUTO) 4 % (12-44); MEAN CORPUSCULAR HEMOGLOBIN 31 PG (25-34); MEAN CORPUSCULAR HGB CONC 34 G/DL (32-36); MEAN CORPUSCULAR VOLUME 89 FL (80-99); MEAN PLATELET VOLUME 10.6 FL (7.4-10.4); MONOCYTES # (AUTO) 1.2 X 10^3 (0.0-1.0); MONOCYTES % (AUTO) 9 % (0-12); NEUTROPHILS # (AUTO) 12.3 X 10^3 (1.8-7.8); NEUTROPHILS % (AUTO) 88 % (42-75); PLATELET COUNT 179 10^3/uL (130-400); RED BLOOD COUNT 4.36 10^6/uL (4.35-5.85); RED CELL DISTRIBUTION WIDTH 13.1 % (10.0-14.5); WHITE BLOOD COUNT 14.1 10^3/uL (4.3-11.0)
[2018-05-12] MEDS ORDERED: ASPIRIN 81 MG CHEW (CHILDREN'S ASA) PO ONE (15:15)
[2018-05-12 15:16] LABS: INR 1.2 (0.8-1.4); PROTHROMBIN TIME PATIENT 15.3 SEC (12.2-14.7)
[2018-05-12 15:28] LABS: ALANINE AMINOTRANSFERASE 8 U/L (0-55); ALBUMIN 3.7 GM/DL (3.2-4.5); ALKALINE PHOSPHATASE 68 U/L (40-136); BILIRUBIN,TOTAL 0.9 MG/DL (0.1-1.0); BUN/CREATININE RATIO 16; CALCIUM 9.1 MG/DL (8.5-10.1); CARBON DIOXIDE 28 MMOL/L (21-32); CHLORIDE 94 MMOL/L (98-107); CREATININE SERUM 2.46 MG/DL (0.60-1.30); GFR ESTIMATED 26; GLUCOSE 140 MG/DL (70-105); MAGNESIUM 2.1 MG/DL (1.8-2.4); SODIUM 136 MMOL/L (135-145); TOTAL PROTEIN 6.8 GM/DL (6.4-8.2)
[2018-05-12 15:35] LABS: MYOGLOBIN SERUM 359.2 NG/ML (10.0-92.0)
[2018-05-12 15:37] LABS: BAND NEUTROPHILS 13 %; LYMPHOCYTES % (MANUAL) 5 %; NEUTROPHILS % (MANUAL) 68 %
[2018-05-12] MEDS ORDERED: LACTATED RINGERS 1,000 ML IV ONE ×2 (15:37→15:47)
[2018-05-12 15:38] LABS: MONOCYTES % (MANUAL) 14 %
[2018-05-12 15:42] LABS: RBC MORPH NORMAL; TOXIC GRANULATION/VACUOLAZATIO 1+
[2018-05-12] MEDS ORDERED: cefTRIAXone FOR IV USE 1,000 MG in NS (IVPB) 50 ML IV ONE (15:45)
--- NOTE | 2018-05-12 15:58 | Diagnostic Imaging Report ---
INDICATION: Fall. Correlation made with the prior CT of the chest from 03/09/2015. FINDINGS: There are chronic interstitial changes present within the lungs. There is no alveolar consolidation. There is no evidence of pneumothorax or evidence of a pleural collection. There is no abnormal widening of the mediastinum. Heart size mildly prominent but unchanged. Pulmonary vascularity appears appropriate. There has been prior bilateral shoulder arthroplasty. No acute fractures are evident. IMPRESSION: 1. Chronic interstitial change within the lungs without evidence of an acute cardiopulmonary process. Dictated by: Dictated on workstation # [id number]
[2018-05-12 16:01] LABS: BILIRUBIN,URINE NEGATIVE (NEGATIVE); CLARITY,URINE CLEAR; COLOR,URINE YELLOW; GLUCOSE, URINE (UA) NEGATIVE (NEGATIVE); KETONES,URINE NEGATIVE (NEGATIVE); LEUKOCYTE ESTERASE ,URINE NEGATIVE (NEGATIVE); NITRITE,URINE NEGATIVE (NEGATIVE); PH,URINE 5 (5-9); PROTEIN,URINE NEGATIVE (NEGATIVE); UROBILINOGEN,URINE NORMAL (NORMAL)
[2018-05-12 16:16] LABS: BACTERIA,URINE NEGATIVE /HPF; SQUAMOUS EPITHELIAL CELL,UR 0-2 /HPF
--- NOTE | 2018-05-12 17:21 | Diagnostic Imaging Report ---
PROCEDURE: CT chest, abdomen, and pelvis without contrast. TECHNIQUE: Multiple contiguous axial images were obtained through the chest, abdomen, and pelvis without the use of intravenous contrast. INDICATION: Status post fall. CORRELATION is made with chest radiograph performed the same day. FINDINGS: Mild pulmonary interstitial prominence again demonstrated. There is no focal alveolar consolidation or effusion. There is no pneumothorax. There is no evidence of a pulmonary contusion. There are some calcified mediastinal lymph nodes. The thoracic aorta is normal in caliber with mild atherosclerotic disease. There are mild coronary calcifications. There is no mediastinal hematoma or pericardial collection. Bilateral shoulder arthroplasties are demonstrated. No acute rib fractures are evident. There is no evidence of a fracture of the sternum. The liver demonstrates no noncontrast evidence of a laceration There is no adjacent perihepatic fluid or blood. There are small low-density lesions within the liver compatible with cysts. These are not significantly changed from 2015. The gallbladder is mildly prominent without radiodense gallstone. There is no biliary dilatation. There is marked atrophy of the pancreas. There are a few granulomas within the spleen. There are no findings or perisplenic fluid. There is no adrenal mass. The kidneys are nonobstructed. There is mild left renal atrophy. The small and large bowel appear normal in caliber without obstruction. There is diverticulosis within the left colon and the sigmoid but no findings of diverticulitis. No focal abnormal bowel thickening is demonstrated. There is no free fluid within the pelvis. Urinary bladder is unremarkable. Prostate is mildly enlarged. Advanced multilevel findings of degenerative disc disease and facet arthropathy with vacuum discs at nearly all levels from the mid thoracic spine through the lumbar spine. There is marked lower lumbar facet arthropathy in particular from L3-4 through L5-S1. There are no findings of an acute spinal fracture demonstrated. There does appear to be severe central canal stenosis at L2-3, L3-4 and L4-5 as well as corresponding high-grade bilateral foraminal stenosis at each level as well as at L5-S1. IMPRESSION: 1. No findings of an acute traumatic injury within the chest. The lungs appear clear without contusion or consolidation. There is no pleural collection. 2. No acute thoracic fracture is evident. 3. No acute inflammatory obstructive process within the abdomen or pelvis. There is no free fluid. 4. Marked multilevel thoracolumbar degenerative disc disease and facet arthropathy with multiple levels of high-grade lumbar canal and neural foraminal stenosis. Dictated by: Dictated on workstation # [id number]
--- NOTE | 2018-05-12 17:39 | ED Syncope ---
General Chief Complaint: Dizziness/Syncope Stated Complaint: NEAR SYNCOPE Nursing Triage Note: Pt brought to ED via EMS. Pt reports being at [employer] and feeling dizzy. Pt then drove to [employer] in [place] where pt became diaphoretic, and felt faint. Pt reports falling over cake rack at [employer] but denies falling to ground. Pt c/o neck, shoulder and back pain, but reports taking hydrocodone for chronic back pain. During assessment pt had hacking cough. Pt reports cough has persisted for 2-3 weeks and reports chunky, yellow sputum. History of Present Illness Date Seen by Provider: May 12, 2018 Time Seen by Provider: 14:49 Initial Comments This 77-year-old gentleman presents to the emergency room via EMS after having a couple of near syncopal episodes. Symptoms started at the [facility] when he felt lightheaded/dizzy and diaphoretic. Symptoms improved and he went to the [employer] where he again had an episode of near syncope and diaphoresis. He became so dizzy and lightheaded that he was "seeing stars" and stumbled into the [employer] racks knocking things over. Staff at the store had him sit down and called EMS. Patient is feeling better upon arrival. He complains of pain in his neck, upper back, and around his shoulders. This seems to be an exacerbation of chronic pain. He also has some slight tenderness in the abdomen. He describes having some productive cough in recent weeks as well. He denies any history of cardiac problems EMS. EMS notes frequent PVCs in route. Patient denies any chest pain. He has been afebrile. He reports having some diarrhea last night. Patient was borderline hypotensive upon arrival with systolic blood pressure of 90. IV fluids were infusing by EMS. Allergies and Home Medications Allergies Coded Allergies: codeine (Verified Allergy, Unknown, 04/25/07) morphine (Verified Allergy, Unknown, 04/25/07) Home Medications Hydrocodone/Acetaminophen 1 Each Tablet, 1 EACH PO Q4H PRN for PAIN-MODERATE Prescribed by: JENISE LONDONO on 09/28/17 4190 Patient Home Medication List Home Medication List Reviewed: Yes Review of Systems Constitutional: see HPI, diaphoresis EENTM: no symptoms reported Respiratory: no symptoms reported Cardiovascular: see HPI Gastrointestinal: see HPI Genitourinary: no symptoms reported Musculoskeletal: see HPI Skin: no symptoms reported Psychiatric/Neurological: No Symptoms Reported Past Dmnbcha-Fuxlaa-Blwnhl Hx Past Med/Social Hx: Reviewed and Corrections made Patient Social History Alcohol Use: Occasionally Uses Recreational Drug Use: No Type Used: Cigarettes, Smokeless Tobacco Former Smoker, Quit: Jun 19, 2016 2nd Hand Smoke Exposure: Yes (chew during day, cigarettes at night) Recent Foreign Travel: No Contact w/Someone Who Travel: No Recent Infectious Disease Expo: No Recent Hopitalizations: No Physical Abuse: No Sexual Abuse: No Immunizations Up To Date Tetanus Booster (TDap): Unknown Date of Pneumonia Vaccine: Mar 19, 2012 Date of Influenza Vaccine: Mar 19, 2012 Seasonal Allergies Seasonal Allergies: Yes Past Medical History Surgeries: Yes (BILAT KNEES, SHOULDER, HERNIA, ANKLE, APPY, LASIK) Abdominal, Appendectomy, Eye Surgery, Orthopedic Respiratory: No Cardiac: Yes Hypertension Neurological: Yes Neuropathy Reproductive Disorders: No Prostate Problems Gastrointestinal: No Musculoskeletal: Yes (spinal stenosis) Arthritis, Chronic Back Pain Endocrine: No Cancer: No Psychosocial: Yes Sleep Difficulties, Depression Integumentary: No Blood Disorders: No Family Medical History Reviewed Nursing Family Hx No Pertinent Family Hx Physical Exam Vital Signs Vital Signs - First Documented 05/12/18 14:49 Temp 97.4 Pulse 77 Resp 18 B/P (MAP) 90/56 (67) Pulse Ox 93 O2 Delivery Room Air Capillary Refill : Less Than 3 Seconds Height, Weight, BMI Height: 6'1.00" Weight: 280lbs. oz. 127.561574ig; BMI Method:Stated General Appearance: No Apparent Distress, WD/WN HEENT: PERRL/EOMI, Normal ENT Inspection Neck: Normal Inspection Cardiovascular: Regular Rate, Rhythm, No Edema, No Murmur, Normal Peripheral Pulses Respiratory: Lungs Clear, Normal Breath Sounds, No Accessory Muscle Use, No Respiratory Distress Gastrointestinal: Normal Bowel Sounds, Soft, Tenderness (slight mid abdominal tenderness) Back: Normal Inspection, Vertebral Tenderness (upper back) Extremities: Normal Capillary Refill, Normal Inspection Neurologic/Psychiatric: Alert, Oriented x3, No Motor/Sensory Deficits, Normal 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, 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 Norm as Tested Cranial Nerves: Normal Hearing, Normal Speech Motor/Sensory: No Motor Deficit, No Sensory Deficit Skin: Normal Color, Warm/Dry Focused Exam Lactate Level 05/12/18 15:58: Lactic Acid Level 2.13*H Lactic Acid Level Laboratory Tests Test 05/12/18 15:58 Lactic Acid Level 2.13 MMOL/L (0.50-2.00) *H Progress/Results/Core Measures Results/Orders Lab Results Laboratory Tests Test 05/12/18 15:00 05/12/18 15:52 05/12/18 15:58 Range/Units White Blood Count 14.1 H 4.3-11.0 10^3/uL Red Blood Count 4.36 4.35-5.85 10^6/uL Hemoglobin 13.3 13.3-17.7 G/DL Hematocrit 39 L 40-54 % Mean Corpuscular Volume 89 80-99 FL Mean Corpuscular Hemoglobin 31 25-34 PG Mean Corpuscular Hemoglobin Concent 34 32-36 G/DL Red Cell Distribution Width 13.1 10.0-14.5 % Platelet Count 179 130-400 10^3/uL Mean Platelet Volume 10.6 H 7.4-10.4 FL Neutrophils (%) (Auto) 88 H 42-75 % Lymphocytes (%) (Auto) 4 L 12-44 % Monocytes (%) (Auto) 9 0-12 % Eosinophils (%) (Auto) 0 0-10 % Basophils (%) (Auto) 0 0-10 % Neutrophils # (Auto) 12.3 H 1.8-7.8 X 10^3 Lymphocytes # (Auto) 0.5 L 1.0-4.0 X 10^3 Monocytes # (Auto) 1.2 H 0.0-1.0 X 10^3 Eosinophils # (Auto) 0.0 0.0-0.3 10^3/uL Basophils # (Auto) 0.0 0.0-0.1 10^3/uL Neutrophils % (Manual) 68 % Lymphocytes % (Manual) 5 % Monocytes % (Manual) 14 % Band Neutrophils 13 % Toxic Granulation 1+ Blood Morphology Comment NORMAL Prothrombin Time 15.3 H 12.2-14.7 SEC INR Comment 1.2 0.8-1.4 Activated Partial Thromboplast Time 31 24-35 SEC Sodium Level 136 135-145 MMOL/L Potassium Level 3.0 L 3.6-5.0 MMOL/L Chloride Level 94 L 98-107 MMOL/L Carbon Dioxide Level 28 21-32 MMOL/L Anion Gap 14 5-14 MMOL/L Blood Urea Nitrogen 39 H 7-18 MG/DL Creatinine 2.46 H 0.60-1.30 MG/DL Estimat Glomerular Filtration Rate 26 BUN/Creatinine Ratio 16 Glucose Level 140 H 70-105 MG/DL Calcium Level 9.1 8.5-10.1 MG/DL Corrected Calcium 9.3 8.5-10.1 MG/DL Magnesium Level 2.1 1.8-2.4 MG/DL Total Bilirubin 0.9 0.1-1.0 MG/DL Aspartate Amino Transf (AST/SGOT) 14 5-34 U/L Alanine Aminotransferase (ALT/SGPT) 8 0-55 U/L Alkaline Phosphatase 68 40-136 U/L Total Creatine Kinase 80 30-200 U/L Myoglobin 359.2 H 10.0-92.0 NG/ML Troponin I < 0.30 <0.30 NG/ML C-Reactive Protein High Sensitivity 11.39 H 0.00-0.50 MG/DL Total Protein 6.8 6.4-8.2 GM/DL Albumin 3.7 3.2-4.5 GM/DL Urine Color YELLOW Urine Clarity CLEAR Urine pH 5 5-9 Urine Specific Bonner 1.010 L 1.016-1.022 Urine Protein NEGATIVE NEGATIVE Urine Glucose (UA) NEGATIVE NEGATIVE Urine Ketones NEGATIVE NEGATIVE Urine Nitrite NEGATIVE NEGATIVE Urine Bilirubin NEGATIVE NEGATIVE Urine Urobilinogen NORMAL NORMAL MG/DL Urine Leukocyte Esterase NEGATIVE NEGATIVE Urine RBC (Auto) NEGATIVE NEGATIVE Urine RBC NONE /HPF Urine WBC NONE /HPF Urine Squamous Epithelial Cells 0-2 /HPF Urine Crystals NONE /LPF Urine Bacteria NEGATIVE /HPF Urine Casts NONE /LPF Urine Mucus NEGATIVE /LPF Urine Culture Indicated NO Lactic Acid Level 2.13 *H 0.50-2.00 MMOL/L Micro Results Microbiology 05/12/18 Influenza Types A,B Antigen (RUSLAN) - Final, Complete My Orders Orders - PROSPER HERMAN MD Cbc With Automated Diff (05/12/18 15:04) Magnesium (05/12/18 15:04) Chest 1 View, Ap/Pa Only (05/12/18 15:04) Ekg Tracing (05/12/18 15:04) Cardiac Profile 1 (05/12/18 15:04) Comprehensive Metabolic Panel (05/12/18 15:04) Myoglobin Serum (05/12/18 15:04) Protime With Inr (05/12/18 15:04) Partial Thromboplastin Time (05/12/18 15:04) O2 (05/12/18 15:04) Monitor-Rhythm Ecg Trace Only (05/12/18 15:04) Lipid Panel (05/13/18 06:00) Aspirin Chewable Tablet (Baby Aspirin Ch (05/12/18 15:15) Saline Lock/Iv-Start (05/12/18 15:04) Manual Differential (05/12/18 15:00) Hs C Reactive Protein (05/12/18 15:13) Saline Lock/Iv-Start (05/12/18 15:37) Lactated Ringers (Lr 1000 Ml Iv Solution (05/12/18 15:37) Blood Culture (05/12/18 15:37) Sputum Culture (05/12/18 15:37) Urinalysis (05/12/18 15:37) Urine Culture (05/12/18 15:37) Saline Lock/Iv-Start (05/12/18 15:37) Vital Signs Adult Sepsis Patie Q15M (05/12/18 15:37) Remove Rings In Anticipation O (05/12/18 15:37) Lactic Acid Analyzer (05/12/18 15:37) Ceftriaxone For Iv Use (Rocephin For I (05/12/18 15:45) Lactated Ringers (Lr 1000 Ml Iv Solution (05/12/18 15:47) Ct Chest/Abdomen/Pelvis Wo (05/12/18 16:03) Influenza A And B Antigens (05/12/18 17:32) Creatine Kinase (05/12/18 17:39) Fentanyl Injection (Sublimaze Injection (05/12/18 17:45) Medications Given in ED Current Medications Medications Dose Ordered Sig/Kevin Route Start Time Stop Time Status Last Admin Dose Admin Aspirin 324 mg ONCE ONCE PO 05/12/18 15:15 05/12/18 15:16 DC 05/12/18 15:18 324 MG Ceftriaxone Sodium 1000 mg/ Sodium Chloride 50 ml @ 100 mls/hr ONCE ONCE IV 05/12/18 15:45 05/12/18 16:14 DC 05/12/18 15:59 100 MLS/HR Fentanyl Citrate 50 mcg ONCE ONCE IVP 05/12/18 17:45 05/12/18 17:46 DC 05/12/18 17:53 50 MCG Lactated Ringer's 1,000 ml @ 0 mls/hr Q0M ONCE IV 05/12/18 15:37 05/12/18 15:39 DC 05/12/18 15:59 1,000 MLS/HR Lactated Ringer's 1,000 ml @ 0 mls/hr Q0M ONCE IV 05/12/18 15:47 05/12/18 15:48 DC 05/12/18 17:26 1,000 MLS/HR Vital Signs/I&O 05/12/18 14:49 Temp 97.4 Pulse 77 Resp 18 B/P (MAP) 90/56 (67) Pulse Ox 93 O2 Delivery Room Air Blood Pressure Mean: 67 Progress Progress Note : Progress Note Cardiopulmonary workup was unremarkable. Patient had some unusual pain complaints with abdominal pain and upper back pain. I elected to perform CT of the chest, abdomen and pelvis for further assessment. I was concerned about a possible occult pneumonia, abdominal source of infection, or other pathology. CT was unremarkable. Rocephin was given for empiric treatment of possible sepsis. No source of infection was found. Influenza screen was negative. Patient received a liter of IV normal saline by EMS as well as 2 L of LR through the ER. Blood pressures did improve. Patient was feeling better. He was found to have acute renal failure and hypokalemia. Patient was ultimately admitted for further treatment. Dr. Mendez was consulted for the frequent PVCs , near syncope and diaphoresis. Near syncope may have been simply due to hypovolemia. Initial ECG Impression Date: May 12, 2018 Initial ECG Impression Time: 14:50 Initial ECG Rate: 79 Initial ECG Rhythm: Normal Sinus Comment Sinus rhythm with multiple PVCs. First-degree AV block with MO interval of 216. No axis deviation. No ST elevation or depression. Diagnostic Imaging Diagonstic Imaging: Xray Plain Films/CT/US/NM/MRI: chest Comments Chest x-ray viewed by me and report reviewed. See report below: NAME: YULISA RAMOS [facility] REC#: [id number] PT STATUS: REG ER : 1940 PHYSICIAN: PROSPER HERMAN MD ADMIT DATE: 05/12/18/ER Signed Date of Exam: 05/12/18 CHEST 1 VIEW, AP/PA ONLY INDICATION: Fall. Correlation made with the prior CT of the chest from 03/09/2015. FINDINGS: There are chronic interstitial changes present within the lungs. There is no alveolar consolidation. There is no evidence of pneumothorax or evidence of a pleural collection. There is no abnormal widening of the mediastinum. Heart size mildly prominent but unchanged. Pulmonary vascularity appears appropriate. There has been prior bilateral shoulder arthroplasty. No acute fractures are evident. IMPRESSION: 1. Chronic interstitial change within the lungs without evidence of an acute cardiopulmonary process. Dictated by: Dictated on workstation # [id number] Dict: 05/12/18 1535 Trans: 05/12/18 1601 Interpreted by: JOSE CRUZ MALDONADO MD Electronically signed by: JOSE CRUZ MALDONADO MD 05/12/18 1601 Diagonstic Imaging: CT Plain Films/CT/US/NM/MRI: chest, abdomen, pelvis Comments CT chest, abdomen and pelvis viewed by me and report reviewed. See report below : NAME: YULISA RAMOS [facility] REC#: [id number] PT STATUS: REG ER : 1940 PHYSICIAN: PROSPER HERMAN MD ADMIT DATE: 05/12/18/ER Draft Date of Exam:05/12/18 CT CHEST/ABDOMEN/PELVIS WO PROCEDURE: CT chest, abdomen, and pelvis without contrast. TECHNIQUE: Multiple contiguous axial images were obtained through the chest, abdomen, and pelvis without the use of intravenous contrast. INDICATION: Status post fall. CORRELATION is made with chest radiograph performed the same day. FINDINGS: Mild pulmonary interstitial prominence again demonstrated. There is no focal alveolar consolidation or effusion. There is no pneumothorax. There is no evidence of a pulmonary contusion. There are some calcified mediastinal lymph nodes. The thoracic aorta is normal in caliber with mild atherosclerotic disease. There are mild coronary calcifications. There is no mediastinal hematoma or pericardial collection. Bilateral shoulder arthroplasties are demonstrated. No acute rib fractures are evident. There is no evidence of a fracture of the sternum. The liver demonstrates no noncontrast evidence of a laceration There is no adjacent perihepatic fluid or blood. There are small low-density lesions within the liver compatible with cysts. These are not significantly changed from 2015. The gallbladder is mildly prominent without radiodense gallstone. There is no biliary dilatation. There is marked atrophy of the pancreas. There are a few granulomas within the spleen. There are no findings or perisplenic fluid. There is no adrenal mass. The kidneys are nonobstructed. There is mild left renal atrophy. The small and large bowel appear normal in caliber without obstruction. There is diverticulosis within the left colon and the sigmoid but no findings of diverticulitis. No focal abnormal bowel thickening is demonstrated. There is no free fluid within the pelvis. Urinary bladder is unremarkable. Prostate is mildly enlarged. Advanced multilevel findings of degenerative disc disease and facet arthropathy with vacuum discs at nearly all levels from the mid thoracic spine through the lumbar spine. There is marked lower lumbar facet arthropathy in particular from L3-4 through L5-S1. There are no findings of an acute spinal fracture demonstrated. There does appear to be severe central canal stenosis at L2-3, L3-4 and L4-5 as well as corresponding high-grade bilateral foraminal stenosis at each level as well as at L5-S1. IMPRESSION: 1. No findings of an acute traumatic injury within the chest. The lungs appear clear without contusion or consolidation. There is no pleural collection. 2. No acute thoracic fracture is evident. 3. No acute inflammatory obstructive process within the abdomen or pelvis. There is no free fluid. 4. Marked multilevel thoracolumbar degenerative disc disease and facet arthropathy with multiple levels of high-grade lumbar canal and neural foraminal stenosis. Dictated on workstation # [id number] Dict: 05/12/18 1626 Trans: 05/12/18 1720 [facility] [id number] Interpreted by: JOSE CRUZ MALDONADO MD Departure Communication (Admissions) Time/Spoke to Admitting Phy: 17:30 Dr. Arellano Time/Spoke to Consulting Phy: 17:34 Dr. Mendez Impression Primary Impression: Acute renal failure Qualified Codes: N17.9 - Acute kidney failure, unspecified Additional Impressions: Near syncope Hypokalemia Hypotension Qualified Codes: I95.89 - Other hypotension; E86.1 - Hypovolemia Hypovolemia Diaphoresis Leukocytosis Qualified Codes: D72.829 - Elevated white blood cell count, unspecified Back pain Qualified Codes: M54.6 - Pain in thoracic spine; G89.29 - Other chronic pain PVCs (premature ventricular contractions) Cough Disposition: 09 ADMITTED INPATIENT Condition: Improved Admissions Decision to Admit Reason: Admit from ER (General) Decision to Admit/Date: May 12, 2018 Time/Decision to Admit Time: 15:40 Departure-Patient Inst. Referrals: LALO LAMBERT DO (PCP/Family) Primary Care Physician Copy Copies To 1: LALO LAMBERT JOSHUA T MD May 12, 2018 17:39
[2018-05-12] MEDS ORDERED: fentaNYL INJECTION 100 MCG/2 ML AMP IVP ONE (17:45)
[2018-05-12] MEDS ORDERED: CATHETER FLUSH 10 ML SYR IV PRN (20:30)
[2018-05-12] MEDS: CATHETER FLUSH 10 ML SYR IV SCH (21:56)
[2018-05-12] MEDS: NS W/KCL 20 MEQ/L 1,000 ML IV SCH (21:56)
[2018-05-13] VITALS (9 sets, daily range): BP systolic 98–161; BP diastolic 59–94
[2018-05-13] MEDS: NS W/KCL 20 MEQ/L 1,000 ML IV SCH ×4 (05:34→23:57)
[2018-05-13] MEDS: CATHETER FLUSH 10 ML SYR IV SCH ×3 (06:18→22:14)
[2018-05-13 06:54] LABS: BASOPHILS % (AUTO) 0 % (0-10); EOSINOPHILS # (AUTO) 0.1 10^3/uL (0.0-0.3); EOSINOPHILS % (AUTO) 1 % (0-10); HEMATOCRIT 36 % (40-54); HEMOGLOBIN 12.1 G/DL (13.3-17.7); LYMPHOCYTES # (AUTO) 1.4 X 10^3 (1.0-4.0); LYMPHOCYTES % (AUTO) 14 % (12-44); MEAN CORPUSCULAR HEMOGLOBIN 30 PG (25-34); MEAN CORPUSCULAR HGB CONC 33 G/DL (32-36); MEAN CORPUSCULAR VOLUME 90 FL (80-99); MEAN PLATELET VOLUME 10.3 FL (7.4-10.4); MONOCYTES # (AUTO) 0.9 X 10^3 (0.0-1.0); MONOCYTES % (AUTO) 9 % (0-12); NEUTROPHILS # (AUTO) 7.6 X 10^3 (1.8-7.8); NEUTROPHILS % (AUTO) 76 % (42-75); PLATELET COUNT 140 10^3/uL (130-400); RED BLOOD COUNT 4.01 10^6/uL (4.35-5.85); RED CELL DISTRIBUTION WIDTH 13.2 % (10.0-14.5); WHITE BLOOD COUNT 10.1 10^3/uL (4.3-11.0)
[2018-05-13 07:19] LABS: ALBUMIN 3.1 GM/DL (3.2-4.5); BILIRUBIN,TOTAL 0.5 MG/DL (0.1-1.0); CALCIUM 8.6 MG/DL (8.5-10.1); CHOLESTEROL 107 MG/DL (< 200); CREATININE SERUM 1.73 MG/DL (0.60-1.30); HDL CHOLESTEROL 25 MG/DL (40-60); TOTAL PROTEIN 5.8 GM/DL (6.4-8.2); TRIGLYCERIDES 56 MG/DL (<150); VLDL CHOLESTEROL 11 MG/DL (5-40)
--- NOTE | 2018-05-13 08:42 | Diagnostic Imaging Report ---
Portable chest. Indication: Near syncope with acute renal failure and hypokalemia. Comparison made to the prior study from May 12, 2018. Findings: When compared to the prior examination, there has not been evidence of significant interval change. There are chronic interstitial changes within the lungs. No new alveolar consolidation opacification demonstrated. There is no significant effusion. Heart size stable. Central pulmonary vascularity appears unremarkable. Impression: 1. Stable radiograph of the chest. Chronic interstitial changes are present within the lungs without new alveolar infiltrate or effusion. There is mild enlargement of the cardiac silhouette but the pulmonary vascularity appears appropriate without findings of current congestive failure. Dictated by: Dictated on workstation # [id number]
[2018-05-13] MEDS: ASPIRIN E.C. 81 MG (ECOTRIN) TAB PO SCH (09:38)
--- NOTE | 2018-05-13 11:46 | History & Physical-Hospitalist ---
History of Present Illness HPI/Chief Complaint CC: Near syncope HPI: This is a 77yoWM clinic patient of Dr Russell who presented to the ER via EMS after he was found near syncopal at the [employer] store following a similar episode at home earlier in the day. He was found to have ARF with creatinine of 2.0 with normal creatinine baseline at 0.9 in addition to mild hypotension. Pt was placed on IVF and covered for bacterial bronchitis with Rocephin and monitored on telemetry. Pt feels better than yesterday and his creatinine has improved to 1.7 today with improved UOP. He states he never drinks water and only drinks soda and I encouraged him to add water to his fluid consumption in the future to prevent hypovolemia and similar episode as this in the future. Source: patient, RN/MD Exam Limitations: no limitations Date Seen 05/13/18 Time Seen by a Provider: 10:45 Attending Physician Bobbi Arellano DO PCP Miguel Russell DO Referring Physician Date of Admission May 12, 2018 at 17:53 Home Medications & Allergies Home Medications Reviewed patient Home Medication Reconciliation performed by pharmacy medication reconciliations artificial insemination technician and/or nursing. Patients Allergies have been reviewed. Allergies Allergies Coded Allergies codeine (Verified Allergy, Unknown, 04/25/07) morphine (Verified Allergy, Unknown, 04/25/07) Past Pdmnuql-Ddgyad-Dfwfoz Hx Past Med/Social Hx: Reviewed Nursing Past Med/Soc Hx, Reviewed and Corrections made Patient Social History Marrital Status: Employed/Student: retired Alcohol Use: Occasionally Uses Alcohol Beverage of Choice: Beer Recreational Drug Use: No Smoking Status: Current Everyday Smoker Former Smoker, Quit: Jun 19, 2016 Type Used: Cigarettes, Smokeless Tobacco 2nd Hand Smoke Exposure: Yes (chew during day, cigarettes at night) Physical Abuse Screen: No Sexual Abuse: No Recent Foreign Travel: No Contact w/other who traveled: No Recent Hopitalizations: No Recent Infectious Disease Expo: No Immunizations Up To Date Tetanus Booster (TDap): Unknown Date of Pneumonia Vaccine: Mar 19, 2012 Date of Influenza Vaccine: Mar 19, 2018 Seasonal Allergies Seasonal Allergies: Yes Past Medical History Surgeries: Abdominal, Appendectomy, Eye Surgery, Orthopedic Cardiac: Hypertension Neurological: Neuropathy Reproductive: No Genitourinary: Prostate Problems Gastrointestinal: Gastroesophageal Reflux Musculoskeletal: Arthritis, Chronic Back Pain HEENT: Cataract Hearing Impairment: Hard of Hearing Psychosocial: Sleep Difficulties, Depression History of Blood Disorders: No Family History Reviewed Nursing Family Hx No Pertinent Family Hx Review of Systems Constitutional: see HPI, diaphoresis, dizziness, malaise, weakness EENTM: no symptoms reported Respiratory: cough Cardiovascular: no symptoms reported Gastrointestinal: loss of appetite, nausea Genitourinary: decreased output Musculoskeletal: no symptoms reported Skin: no symptoms reported Psychiatric/Neurological: No Symptoms Reported All Other Systems Reviewed Negative Unless Noted: Yes Physical Exam Physical Exam Vital Signs Vital Signs - First Documented 05/12/18 05/13/18 05/13/18 14:49 04:00 12:15 Temp 97.4 Pulse 77 Resp 18 B/P (MAP) 90/56 (67) Pulse Ox 93 O2 Delivery Room Air O2 Flow Rate 2.00 FiO2 32 Capillary Refill : Less Than 3 Seconds Height, Weight, BMI Height: 6'2.00" Weight: 286lbs. 3.0oz. 129.398033lz; 36.2 BMI Method:Stated General Appearance: No Apparent Distress, WD/WN, Chronically ill, Obese Eyes: Bilateral Eye Normal Inspection, Bilateral Eye PERRL HEENT: PERRL/EOMI, Pharynx Normal, Other (dry MM) Neck: Full Range of Motion, Normal Inspection, Non Tender, Supple, Carotid Bruit Respiratory: Chest Non Tender, Normal Breath Sounds, No Accessory Muscle Use, No Respiratory Distress, Decreased Breath Sounds, Wheezing (subtle in end- expiratory) Cardiovascular: Regular Rate, Rhythm, No Edema, No Gallop, No JVD, No Murmur, Normal Peripheral Pulses Gastrointestinal: Normal Bowel Sounds, No Organomegaly, No Pulsatile Mass, Non Tender, Soft Back: Normal Inspection, No CVA Tenderness, No Vertebral Tenderness Extremity: Normal Capillary Refill, Normal Inspection, Normal Range of Motion, Non Tender, No Calf Tenderness, No Pedal Edema Neurologic/Psychiatric: Alert, Oriented x3, No Motor/Sensory Deficits, Normal Mood/Affect Skin: Normal Color, Warm/Dry Lymphatic: No Adenopathy Results Results/Procedures Labs Laboratory Tests 05/12/18 15:00 05/13/18 06:16 Patient resulted labs reviewed. Assessment/Plan Admission Diagnosis Assessment: Near syncope ARF creatinine 2.0 Hypovolemia Hypotension in ER Bacterial bronchitis Wheezing on exam subtle finding HTN baseline Chronic back pain Smoker Plan: IVF Nebs IS Ambulate Rocephin Labs in am DC Tely Home meds Admission Status: Inpatient Order (span 2 midnights) Reason for Inpatient Admission: ARF with dehdyration and wheezing on exam qill require 3 days inpt Diagnosis/Problems Diagnosis/Problems (1) Near syncope Status: Acute (2) Hypotension Status: Acute Qualifiers: Hypotension type: hypotension due to hypovolemia Qualified Codes: I95.89 - Other hypotension; E86.1 - Hypovolemia (3) Bronchitis Status: Acute (4) Smoker Status: Chronic (5) Hypertension Status: Chronic Qualifiers: Hypertension type: essential hypertension Qualified Codes: I10 - Essential (primary) hypertension (6) Chronic pain Status: Chronic Qualifiers: Chronic pain type: chronic pain syndrome Qualified Codes: G89.4 - Chronic pain syndrome (7) Leukocytosis Status: Acute Qualifiers: Leukocytosis type: unspecified Qualified Codes: D72.829 - Elevated white blood cell count, unspecified (8) Cough Status: Acute (9) Acute renal failure Status: Acute Qualifiers: Acute renal failure type: unspecified Qualified Codes: N17.9 - Acute kidney failure, unspecified (10) Diaphoresis Status: Acute (11) Hypovolemia Status: Acute (12) Hypokalemia Status: Acute (13) Wheezing Status: Acute (14) Lactic acid increased Status: Acute Clinical Quality Measures DVT/VTE Risk/Contraindication: Risk Factor Score Per Nursin RFS Level Per Nursing on Admit: 4+=Very High BOBBI ARELLANO DO May 13, 2018 11:46
[2018-05-13] MEDS ORDERED: amLODIPine 5 MG (NORVASC) TAB PO NR (11:57)
[2018-05-13] MEDS ORDERED: RT-ALBUTEROL/IPRATROPIUM 3 ML (DUONEB) VIAL INH NR (12:04)
[2018-05-13] MEDS: HYDROcodone/APAP 5 MG/325 MG (LORTAB) TAB PO PRN ×2 (12:29→22:22)
--- NOTE | 2018-05-13 13:18 | Consultation-Cardiology ---
HPI-Cardiology Cardiology Consultation: Date of Consultation 05/13/18 Date of Admission Attending Physician Bobbi Arellano DO Admitting Physician Miguel Russell DO Consulting Physician Chiquita MENDEZ MD HPI: Time Seen by a Provider: 12:30 Chief Complaint: Near syncope This is a 77-year-old gentleman who follows with Dr. Russell. He presents with an episode of near syncope. He was found to be in acute renal failure with creatinine of 2.0. He was also found to be hypotensive. The patient denies any chest pain, palpitation, further near-syncope or syncope. He also does not complain of any significant shortness of breath. Review of Systems-Cardiology Review of Systems Constitutional: As described under HPI; No As described under HPI, No no symptoms reported, No chills, No fever, No lightheadedness Eyes: No As described under HPI, No no symptoms reported, No blindness, No blurred vision, No contact lenses, No drainage, No decreased acuity, No foreign body sensation, No pain, No vision change Ears/Nose/Throat: No As described under HPI, No no symptoms reported, No chronic hearing loss, No ear discharge, No ear pain, No nasal drainage, No ulcerations Respiratory: No no symptoms reported; As described under HPI; No As described under HPI, No cough, No orthopnea, No shortness of breath, No SOB with excertion Cardiovascular: No no symptoms reported; As described under HPI; No As described under HPI, No chest pain, No edema, No irregular heart rate, No lightheadedness, No palpitations; syncope Gastrointestinal: No no symptoms reported, No As described under HPI, No abdomen distended, No abdominal pain, No blood streaked bowels, No constipation , No diarrhea, No nausea, No vomiting, No stool coloration changes Genitourinary: No As described under HPI, No burning, No dysuria, No discharge , No frequency, No flank pain, No hematuria, No urgency Skin: No rash, No skin related problems, No ulcerations Psychiatric/Neurological: No anxiety, No depression, No seizure, No focal weakness, No syncope Hematologic: No bleeding abnormalities [id number] Hx Patient Social History Alcohol Use: Occasionally Uses Recreational Drug Use: No Smoking Status: Current Everyday Smoker Former smoker/When Quit: Oct 05, 2010 Type Used: Cigarettes, Smokeless Tobacco 2nd Hand Smoke Exposure: Yes (chew during day, cigarettes at night) Recent Foreign Travel: No Recent Infectious Disease Expo: No Hospitalization with Isolation: Denies Physical Abuse Screen: No Sexual Abuse: No Immunizations Up To Date Tetanus Booster (TDap): Unknown Date of Pneumonia Vaccine: Mar 19, 2012 Date of Influenza Vaccine: Mar 19, 2018 Past Medical History PMH As described under Assessment. Allergies and Home Medications Allergies Coded Allergies: codeine (Verified Allergy, Unknown, 04/25/07) morphine (Verified Allergy, Unknown, 04/25/07) Home Medications Hydrocodone/Acetaminophen 1 Each Tablet, 1 EACH PO Q4H PRN for PAIN-MODERATE Prescribed by: JENISE LONDONO on 09/28/17 7109 Patient Home Medication List Home Medication List Reviewed: Yes Physical Exam-Cardiology Physical Exam Vital Signs/I&O 05/13/18 05/13/18 05/13/18 05/13/18 06:33 07:00 08:00 08:00 Temp 98.4 Pulse 70 73 Resp 20 B/P (MAP) 158/78 (104) Pulse Ox 94 94 99 O2 Delivery Nasal Cannula Room Air Nasal Cannula O2 Flow Rate 2.00 2.00 05/13/18 05/13/18 05/13/18 05/13/18 08:00 12:00 12:00 12:04 Temp 97.1 Pulse 83 Resp 18 B/P (MAP) 138/64 (88) Pulse Ox 98 97 O2 Delivery Nasal Cannula Room Air Nasal Cannula Nasal Cannula O2 Flow Rate 2.00 2.00 3.00 05/13/18 05/13/18 05/13/18 05/13/18 12:15 14:00 14:25 16:00 Pulse 73 77 85 95 B/P (MAP) 161/88 (112) 155/92 (113) 127/89 (102) Pulse Ox 97 93 O2 Delivery Room Air Room Air FiO2 32 05/13/18 16:45 Temp 98.0 Pulse 98 Resp 24 B/P (MAP) 151/94 (113) Pulse Ox 95 O2 Delivery Nasal Cannula O2 Flow Rate 2.00 05/13/18 00:00 Intake Total 2500 ml Output Total 250 ml Balance 2250 ml Capillary Refill : Less Than 3 Seconds Constitutional: appears stated age, AAO x 3; No apparent distress; well- developed, well-nourished HEENT: PERRL; No normal ENT inspection, No TMs normal, No pharynx normal, No scleral icterus (R), No scleral icterus (L), No pale conjunctivae (R), No pale conjunctivae (L), No photophobia, No TM abnormal (R), No TM abnormal (L), No pharyngeal erythema, No tonsillar exudate, No other, No discharge, No EOMI; hearing is well preserved; No hard of hearing; oral hygience is good; No ulceration, No xanthelasmas are seen Neck: No non-tender, No full range of motion, No supple, No normal inspection, No carotid bruit, No limited range of motion, No lymphadenopathy (R), No lymphadenopathy (L), No tender lateral, No tender midline, No thyromegaly, No other; carotid pulses are 2 + bilaterally; No with good upstrokes Respiratory: No accessory muscle use, No respiratory distress, No chest tender , No chest expansion is symmetric; chest is bilaterally symmetric; No lungs clear to percussion; lungs clear to auscultation; No crackles, No rhonchi, No rales, No stridor, No wheezing, No pleural rub, No other Cardiovascular: regular rate-rhythm; No irregularly irregular, No extra beats, No parasternal heave is noted, No JVD, No edema, No bradycardia, No tachycardia , No point of maximal impulse, No cardiac thrills are palpable; S1 and S2; No gallop/S3, No gallop/S4, No diastolic murmur, No systolic murmur, No friction rub, No click, No other Gastrointestinal: No tender, No soft, No round, No distended, No pulsatile mass , No organomegaly, No guarding, No rebound, No tenderness, No hernia, No mass, No audible bowel sounds, No abnormal bowel sounds, No abdominal bruits, No spleenomegaly, No other Rectal: deferred Extremities: No normal range of motion, No non-tender, No normal inspection, No pedal edema, No calf tenderness, No normal capillary refill, No pelvis stable , No calf tenderness, No inflammation, No pedal edema, No slow capillary refill , No swelling, No other, No abrasion, No clubbing, No cyanosis, No ecchymosis, No laceration, No no lower extremity edema bilateral, No significant edema, No tenderness, No wound Neurologic/Psychiatric: no motor/sensory deficits, alert, normal mood/affect, oriented x 3, power is 5/5 both on sides Skin: No normal color, No warm/dry, No cyanosis, No cool, No diaphoresis, No damp, No ecchymosis, No jaundice, No mottled, No pallor, No rash, No tattoos/ piercings, No ulcerations, No rash on exposed areas, No ulcerations on exposed areas, No other Data Review Labs Laboratory Tests 05/12/18 20:56: Troponin I < 0.30 05/13/18 06:16: White Blood Count 10.1, Red Blood Count 4.01L, Hemoglobin 12.1L, Hematocrit 36L , Mean Corpuscular Volume 90, Mean Corpuscular Hemoglobin 30, Mean Corpuscular Hemoglobin Concent 33, Red Cell Distribution Width 13.2, Platelet Count 140, Mean Platelet Volume 10.3, Neutrophils (%) (Auto) 76H, Lymphocytes (%) (Auto) 14 , Monocytes (%) (Auto) 9, Eosinophils (%) (Auto) 1, Basophils (%) (Auto) 0, Neutrophils # (Auto) 7.6, Lymphocytes # (Auto) 1.4, Monocytes # (Auto) 0.9, Eosinophils # (Auto) 0.1, Basophils # (Auto) 0.0, Sodium Level 139, Potassium Level 3.0L, Chloride Level 99, Carbon Dioxide Level 30, Anion Gap 10, Blood Urea Nitrogen 35H, Creatinine 1.73H, Estimat Glomerular Filtration Rate 38, BUN/ Creatinine Ratio 20, Glucose Level 102, Calcium Level 8.6, Corrected Calcium 9.3 , Total Bilirubin 0.5, Aspartate Amino Transf (AST/SGOT) 13, Alanine Aminotransferase (ALT/SGPT) 7, Alkaline Phosphatase 57, Total Protein 5.8L, Albumin 3.1L, Triglycerides Level 56, Cholesterol Level 107, LDL Cholesterol Direct 69, VLDL Cholesterol 11, HDL Cholesterol 25L Microbiology 05/12/18 Blood Culture - Preliminary, Resulted No growth 05/12/18 Influenza Types A,B Antigen (RUSLAN) - Final, Complete ECG Impression ECG Initial ECG Rhythm: Normal Sinus Initial ECG Impression: Nonspecific Changes A/P-Cardiology Assessment/Admission Diagnosis Hypotension, Near syncope, Acute kidney injury Plan Orthostatic blood pressure shows significant drop in blood pressure on standing up. Further IV fluids. Near syncope: No evidence of arrhythmias at this point in time. Continue telemetry. Will likely require a Holter monitor and an event monitor on discharge. Echocardiogram did not show any significant LV dysfunction. Acute kidney injury: Likely secondary to significant dehydration. Thank you for your consultation. Please call me if you have any questions. Ronald Mendez MD, FACP, FACC, FSCAI, FHRS, CCDS Interventional Cardiology Cardiac Electrophysiology Vascular Medicine and Endovascular Interventions Clinical Quality Measures DVT/VTE Risk/Contraindication: Risk Factor Score Per Nursin RFS Level Per Nursing on Admit: 4+=Very High Chiquita MENDEZ MD May 13, 2018 1:18 pm
[2018-05-13] MEDS: RT-ALBUTEROL/IPRATROPIUM 3 ML (DUONEB) VIAL INH SCH ×2 (14:25→20:21)
[2018-05-13] MEDS ORDERED: NS IV 1000 ML 1,000 ML ONE (14:31)
[2018-05-13] MEDS ORDERED: NS IV 1000 ML 1,000 ML IV ONE (14:45)
[2018-05-13] MEDS: cefTRIAXone 1 GM/NS 50 ML IVPB IV SCH ×2 (17:02)
[2018-05-14] VITALS (7 sets, daily range): BP systolic 128–180; BP diastolic 67–98
[2018-05-14] MEDS: NS W/KCL 20 MEQ/L 1,000 ML IV SCH ×2 (05:44→14:55)
[2018-05-14] MEDS: CATHETER FLUSH 10 ML SYR IV SCH ×3 (05:46→20:03)
[2018-05-14 06:03] LABS: BASOPHILS % (AUTO) 0 % (0-10); EOSINOPHILS # (AUTO) 0.1 10^3/uL (0.0-0.3); EOSINOPHILS % (AUTO) 1 % (0-10); HEMATOCRIT 34 % (40-54); HEMOGLOBIN 11.3 G/DL (13.3-17.7); LYMPHOCYTES # (AUTO) 1.2 X 10^3 (1.0-4.0); LYMPHOCYTES % (AUTO) 18 % (12-44); MEAN CORPUSCULAR HEMOGLOBIN 30 PG (25-34); MEAN CORPUSCULAR HGB CONC 33 G/DL (32-36); MEAN CORPUSCULAR VOLUME 91 FL (80-99); MEAN PLATELET VOLUME 10.2 FL (7.4-10.4); MONOCYTES # (AUTO) 0.4 X 10^3 (0.0-1.0); MONOCYTES % (AUTO) 7 % (0-12); NEUTROPHILS # (AUTO) 4.8 X 10^3 (1.8-7.8); NEUTROPHILS % (AUTO) 74 % (42-75); PLATELET COUNT 150 10^3/uL (130-400); RED BLOOD COUNT 3.74 10^6/uL (4.35-5.85); RED CELL DISTRIBUTION WIDTH 13.3 % (10.0-14.5); WHITE BLOOD COUNT 6.5 10^3/uL (4.3-11.0)
[2018-05-14 06:37] LABS: ALBUMIN 3.1 GM/DL (3.2-4.5); BILIRUBIN,TOTAL 0.4 MG/DL (0.1-1.0); CALCIUM 8.7 MG/DL (8.5-10.1); CREATININE SERUM 1.18 MG/DL (0.60-1.30); POTASSIUM 3.4 MMOL/L (3.6-5.0); TOTAL PROTEIN 5.9 GM/DL (6.4-8.2)
[2018-05-14] MEDS: RT-ALBUTEROL/IPRATROPIUM 3 ML (DUONEB) VIAL INH SCH ×2 (07:21→19:56)
--- NOTE | 2018-05-14 07:39 | Progress Note (SOAP) ---
Subjective Time Seen by a Provider: 07:37 Subjective/Events-last exam Patient had he hypotensive episode last night. Kidney function better. Patient hurting with his arthritis. To observe for one more day Focused Exam Lactate Level 05/12/18 15:58: Lactic Acid Level 2.13*H 05/12/18 18:12: Lactic Acid Level 2.23*H Objective Exam Vital Signs Date Time Temp Pulse Resp B/P (MAP) Pulse Ox O2 Delivery O2 Flow Rate FiO2 05/14/18 07:21 96 Nasal Cannula 2.00 05/14/18 04:04 Nasal Cannula 2.00 05/14/18 04:00 99.1 91 20 128/76 (93) 95 Nasal Cannula 2.00 05/14/18 00:30 Nasal Cannula 2.00 05/14/18 00:00 98.3 99 16 136/82 (100) 97 Nasal Cannula 2.00 05/13/18 21:00 Nasal Cannula 2.00 05/13/18 20:22 98 Nasal Cannula 2.00 05/13/18 20:00 Nasal Cannula 2.00 05/13/18 19:45 98.0 88 20 138/78 (98) 95 Nasal Cannula 2.00 05/13/18 16:45 98.0 98 24 151/94 (113) 95 Nasal Cannula 2.00 05/13/18 16:00 Room Air 05/13/18 14:25 93 Room Air 05/13/18 14:00 77 161/88 (112) 85 155/92 (113) 95 127/89 (102) 05/13/18 12:15 73 97 32 05/13/18 12:04 97 Nasal Cannula 3.00 05/13/18 12:00 97.1 83 18 138/64 (88) 98 Nasal Cannula 2.00 05/13/18 12:00 Room Air 05/13/18 08:00 Nasal Cannula 2.00 05/13/18 08:00 98.4 73 20 158/78 (104) 99 Nasal Cannula 2.00 05/13/18 08:00 94 Room Air I & O 05/14/18 07:00 Intake Total 4180 ml Output Total 2565 ml Balance 1615 ml Capillary Refill : Less Than 3 Seconds General Appearance: No Apparent Distress, WD/WN HEENT: Normal ENT Inspection Neck: Normal Inspection Respiratory: Chest Non Tender, No Accessory Muscle Use, No Respiratory Distress Cardiovascular: Regular Rate, Rhythm, No Murmur Gastrointestinal: non tender, soft Results Lab Laboratory Tests 05/14/18 05:25 Laboratory Tests 05/14/18 05:25: White Blood Count 6.5, Red Blood Count 3.74L, Hemoglobin 11.3L, Hematocrit 34L, Mean Corpuscular Volume 91, Mean Corpuscular Hemoglobin 30, Mean Corpuscular Hemoglobin Concent 33, Red Cell Distribution Width 13.3, Platelet Count 150, Mean Platelet Volume 10.2, Neutrophils (%) (Auto) 74, Lymphocytes (%) (Auto) 18 , Monocytes (%) (Auto) 7, Eosinophils (%) (Auto) 1, Basophils (%) (Auto) 0, Neutrophils # (Auto) 4.8, Lymphocytes # (Auto) 1.2, Monocytes # (Auto) 0.4, Eosinophils # (Auto) 0.1, Basophils # (Auto) 0.0, Sodium Level 142, Potassium Level 3.4L, Chloride Level 105, Carbon Dioxide Level 26, Anion Gap 11, Blood Urea Nitrogen 20H, Creatinine 1.18, Estimat Glomerular Filtration Rate 60, BUN/ Creatinine Ratio 17, Glucose Level 105, Calcium Level 8.7, Corrected Calcium 9.4 , Total Bilirubin 0.4, Aspartate Amino Transf (AST/SGOT) 13, Alanine Aminotransferase (ALT/SGPT) 7, Alkaline Phosphatase 54, Total Protein 5.9L, Albumin 3.1L Microbiology 05/12/18 Blood Culture - Preliminary, Resulted No growth 05/12/18 Influenza Types A,B Antigen (RUSLAN) - Final, Complete Assessment/Plan Assessment/Plan Assess & Plan/Chief Complaint Acute renal failure. Near-syncope. Hypokalemia. Orthostatic hypotension. Leukocytosis. PVC. Dehydration. History of tobaccoism Clinical Quality Measures DVT/VTE Risk/Contraindication: Risk Factor Score Per Nursin RFS Level Per Nursing on Admit: 4+=Very High LALO LAMBERT DO May 14, 2018 07:39
[2018-05-14] MEDS ORDERED: KCL 10 MEQ TAB (MICRO K) PO NR (07:45)
[2018-05-14] MEDS: ENOXAPARIN 40 MG/0.4 ML (LOVENOX) SYR SC SCH (08:59)
[2018-05-14] MEDS ORDERED: amLODIPine 5 MG (NORVASC) TAB PO SCH (09:00)
[2018-05-14] MEDS: ASPIRIN E.C. 81 MG (ECOTRIN) TAB PO SCH (09:00)
[2018-05-14] MEDS: HYDROcodone/APAP 5 MG/325 MG (LORTAB) TAB PO PRN ×3 (09:03→20:03)
[2018-05-14] MEDS: ONDANSETRON 4 MG/2 ML (SDV) Z0FRAN IV PRN ×2 (09:08→19:04)
[2018-05-14] MEDS ORDERED: NAPR-915 PO (12:30)
[2018-05-14] MEDS ORDERED: LORA10TA7 PO (12:30)
[2018-05-14] MEDS ORDERED: TAMS0.4C98 PO (12:30)
[2018-05-14] MEDS ORDERED: GABA-488 PO (12:30)
[2018-05-14] MEDS ORDERED: FURO40TA4 PO (12:30)
[2018-05-14] MEDS ORDERED: RT-ALBUINH IH (12:30)
[2018-05-14] MEDS ORDERED: CYCL10TA9 PO (12:30)
[2018-05-14] MEDS ORDERED: HYDR25TA4 PO (12:30)
[2018-05-14] MEDS ORDERED: METO-387 PO (12:30)
[2018-05-14] MEDS ORDERED: SERT50TA2 PO (12:30)
[2018-05-14] MEDS ORDERED: TRAZ-189 PO (12:32)
[2018-05-14] MEDS: cefTRIAXone 1 GM/NS 50 ML IVPB IV SCH ×2 (14:57)
[2018-05-14] MEDS ORDERED: CYCLOBENZAPRINE 10 MG (FLEXERIL) TAB PO PRN (15:00)
[2018-05-14] MEDS: GABAPENTIN 300 MG (NEURONTIN) CAP PO SCH ×2 (16:39→20:04)
--- NOTE | 2018-05-14 17:16 | Cardiology Progress Note ---
Cardiology SOAP Progress Note Subjective: Complains of headache. Objective: I&O/Vital Signs 05/14/18 05/14/18 05/14/18 05/14/18 07:21 08:38 09:00 12:00 Temp 97.6 97.5 Pulse 107 97 Resp 22 20 B/P (MAP) 160/90 (113) 180/86 (117) Pulse Ox 96 96 96 O2 Delivery Nasal Cannula Nasal Cannula Nasal Cannula Room Air O2 Flow Rate 2.00 2.00 05/14/18 16:38 Temp 99.6 Pulse 97 Resp 18 B/P (MAP) 170/98 (122) Pulse Ox 95 O2 Delivery Room Air 05/14/18 00:00 Intake Total 2880 ml Output Total 1890 ml Balance 990 ml Weight (Pounds): 284 Weight (Ounces): 3.0 Weight (Calculated Kilograms): 128.725328 Constitutional: appears stated age, AAO x 3; No apparent distress; well- developed, well-nourished Respiratory: No accessory muscle use, No respiratory distress, No chest tender , No chest expansion is symmetric; chest is bilaterally symmetric; No lungs clear to percussion; lungs clear to auscultation; No crackles, No rhonchi, No rales, No stridor, No wheezing, No pleural rub, No other Cardiovascular: regular rate-rhythm; No irregularly irregular, No extra beats, No parasternal heave is noted, No JVD, No edema, No bradycardia, No tachycardia , No point of maximal impulse, No cardiac thrills are palpable; S1 and S2; No gallop/S3, No gallop/S4, No diastolic murmur, No systolic murmur, No friction rub, No click, No other Gastrointestional: No tender, No soft, No round, No distended, No pulsatile mass, No organomegaly, No guarding, No rebound, No tenderness, No hernia, No mass, No audible bowel sounds, No abnormal bowel sounds, No abdominal bruits, No spleenomegaly, No other Extremities: No normal range of motion, No non-tender, No normal inspection, No pedal edema, No calf tenderness, No normal capillary refill, No pelvis stable , No calf tenderness, No inflammation, No pedal edema, No slow capillary refill , No swelling, No other, No abrasion, No clubbing, No cyanosis, No ecchymosis, No laceration, No no lower extremity edema bilateral, No significant edema, No tenderness, No wound Neurologic/Psychiatric: no motor/sensory deficits, alert, normal mood/affect, oriented x 3, power is 5/5 both on sides Skin: No normal color, No warm/dry, No cyanosis, No cool, No diaphoresis, No damp, No ecchymosis, No jaundice, No mottled, No pallor, No rash, No tattoos/ piercings, No ulcerations, No rash on exposed areas, No ulcerations on exposed areas, No other Results/Procedures: Labs Laboratory Tests 05/14/18 05:25: White Blood Count 6.5, Red Blood Count 3.74L, Hemoglobin 11.3L, Hematocrit 34L, Mean Corpuscular Volume 91, Mean Corpuscular Hemoglobin 30, Mean Corpuscular Hemoglobin Concent 33, Red Cell Distribution Width 13.3, Platelet Count 150, Mean Platelet Volume 10.2, Neutrophils (%) (Auto) 74, Lymphocytes (%) (Auto) 18 , Monocytes (%) (Auto) 7, Eosinophils (%) (Auto) 1, Basophils (%) (Auto) 0, Neutrophils # (Auto) 4.8, Lymphocytes # (Auto) 1.2, Monocytes # (Auto) 0.4, Eosinophils # (Auto) 0.1, Basophils # (Auto) 0.0, Sodium Level 142, Potassium Level 3.4L, Chloride Level 105, Carbon Dioxide Level 26, Anion Gap 11, Blood Urea Nitrogen 20H, Creatinine 1.18, Estimat Glomerular Filtration Rate 60, BUN/ Creatinine Ratio 17, Glucose Level 105, Calcium Level 8.7, Corrected Calcium 9.4 , Total Bilirubin 0.4, Aspartate Amino Transf (AST/SGOT) 13, Alanine Aminotransferase (ALT/SGPT) 7, Alkaline Phosphatase 54, Total Protein 5.9L, Albumin 3.1L Microbiology 05/12/18 Blood Culture - Preliminary, Resulted No growth 05/12/18 Influenza Types A,B Antigen (RUSLAN) - Final, Complete 05/12/18 Urine Culture - Final, Complete NO GROWTH A/P: Assessment/Dx: Orthostatic Hypotension, Near syncope, Acute kidney injury Plan: Yesterday, Orthostatic blood pressure shows significant drop in blood pressure on standing up. Continue IV fluids. Discussed with him that he needs to have generous hydration status and decrease the amount of caffeinated drinks. Near syncope: No evidence of arrhythmias at this point in time. Continue telemetry. Will likely require a Holter monitor and an event monitor on discharge. Echocardiogram did not show any significant LV dysfunction. Acute kidney injury: Likely secondary to significant dehydration. Thank you for your consultation. Please call me if you have any questions. Ronald Mendez MD, FACP, FACC, FSCAI, FHRS, CCDS Interventional Cardiology Cardiac Electrophysiology Vascular Medicine and Endovascular Interventions Focused Exam Lactate Level 05/12/18 15:58: Lactic Acid Level 2.13*H 05/12/18 18:12: Lactic Acid Level 2.23*H Chiquita MENDEZ MD May 14, 2018 5:16 pm
[2018-05-14] MEDS ORDERED: GABAPENTIN 300 MG (NEURONTIN) CAP PO SCH (21:00)
[2018-05-14] MEDS ORDERED: traZODone 50 MG (DESYREL) TAB PO SCH (21:00)
[2018-05-15 04:00] VITALS: BP 134/71
[2018-05-15] MEDS: CATHETER FLUSH 10 ML SYR IV SCH (04:57)
[2018-05-15 06:30] LABS: ALANINE AMINOTRANSFERASE 8 U/L (0-55); ALBUMIN 3.1 GM/DL (3.2-4.5); ALKALINE PHOSPHATASE 50 U/L (40-136); BILIRUBIN,TOTAL 0.4 MG/DL (0.1-1.0); BUN/CREATININE RATIO 10; CALCIUM 8.9 MG/DL (8.5-10.1); CARBON DIOXIDE 21 MMOL/L (21-32); CHLORIDE 109 MMOL/L (98-107); GFR ESTIMATED > 60; GLUCOSE 95 MG/DL (70-105); POTASSIUM 3.6 MMOL/L (3.6-5.0); SODIUM 141 MMOL/L (135-145); TOTAL PROTEIN 5.7 GM/DL (6.4-8.2)
--- NOTE | 2018-05-15 07:55 | Progress Note (SOAP) ---
Subjective Time Seen by a Provider: 07:52 Subjective/Events-last exam Patient doing better and feeling better today. Plan to discharge today. Sputum culture shows yeast put on Diflucan. Focused Exam Lactate Level 05/12/18 15:58: Lactic Acid Level 2.13*H 05/12/18 18:12: Lactic Acid Level 2.23*H Objective Exam Vital Signs Date Time Temp Pulse Resp B/P (MAP) Pulse Ox O2 Delivery O2 Flow Rate FiO2 05/15/18 04:00 97.1 75 20 134/71 (92) 93 Room Air 05/14/18 23:43 97.5 83 20 128/67 (87) 92 Room Air 05/14/18 21:00 Nasal Cannula 2.00 05/14/18 19:58 99.3 92 20 146/83 (104) 95 Room Air 05/14/18 19:56 91 Room Air 05/14/18 16:38 99.6 97 18 170/98 (122) 95 Room Air 05/14/18 12:00 97.5 97 20 180/86 (117) 96 Room Air 05/14/18 09:00 Nasal Cannula 05/14/18 08:38 97.6 107 22 160/90 (113) 96 Nasal Cannula 2.00 I & O 05/15/18 07:00 Intake Total 3260 ml Output Total 2050 ml Balance 1210 ml Capillary Refill : Less Than 3 Seconds General Appearance: No Apparent Distress, WD/WN HEENT: Normal ENT Inspection Neck: Full Range of Motion, Normal Inspection Respiratory: Chest Non Tender, Normal Breath Sounds, No Accessory Muscle Use Cardiovascular: Regular Rate, Rhythm, No Murmur Gastrointestinal: non tender, soft Results Lab Laboratory Tests 05/15/18 05:51 Laboratory Tests 05/15/18 05:51: Sodium Level 141, Potassium Level 3.6, Chloride Level 109H, Carbon Dioxide Level 21, Anion Gap 11, Blood Urea Nitrogen 10, Creatinine 1.00, Estimat Glomerular Filtration Rate > 60, BUN/Creatinine Ratio 10, Glucose Level 95, Calcium Level 8.9, Corrected Calcium 9.6, Total Bilirubin 0.4, Aspartate Amino Transf (AST/SGOT) 16, Alanine Aminotransferase (ALT/SGPT) 8, Alkaline Phosphatase 50, Total Protein 5.7L, Albumin 3.1L Microbiology 05/12/18 Blood Culture - Preliminary, Resulted No growth 05/12/18 Influenza Types A,B Antigen (RUSLAN) - Final, Complete 05/12/18 Urine Culture - Final, Complete NO GROWTH Assessment/Plan Assessment/Plan Assess & Plan/Chief Complaint Acute renal failure. Near-syncope. Hypokalemia. Orthostatic hypotension. Leukocytosis. PVC. Dehydration. History of tobaccoism. . 05/15. Acute renal failure resolved. Dehydration resolved. Near-syncope. Orthostatic hypotension better with since not dehydrated. Leukocytosis resolved. History of tobaccoism. Patient to be discharged today. Patient to be put on Diflucan. Patient to office Monday morning at 10 a.m. Clinical Quality Measures DVT/VTE Risk/Contraindication: Risk Factor Score Per Nursin RFS Level Per Nursing on Admit: 4+=Very High LALO LAMBERT DO May 15, 2018 07:55
[2018-05-15] MEDS ORDERED: FLUC100T PO (07:59)
[2018-05-15 08:02] VITALS: BP 154/81
[2018-05-15] MEDS ORDERED: METO-387 PO (08:03)
--- NOTE | 2018-05-15 08:05 | Discharge Inst-Simple/Standard ---
Discharge Inst-Standard Discharge Medications New, Converted or Re-Newed RX: Call to Patients Pharmacy Patient Instructions/Follow Up Plan of Care/Instructions/FU: 2 office this Monday at 11 a.m. Activity as Tolerated: Yes Discharge Diet: Other Diet (Take more liquids water) LALO LAMBERT DO May 15, 2018 08:05
[2018-05-15] MEDS: ENOXAPARIN 40 MG/0.4 ML (LOVENOX) SYR SC SCH (08:45)
[2018-05-15] MEDS: ASPIRIN E.C. 81 MG (ECOTRIN) TAB PO SCH (08:45)
[2018-05-15] MEDS: HYDROcodone/APAP 5 MG/325 MG (LORTAB) TAB PO PRN ×2 (08:46→15:39)
[2018-05-15] MEDS: GABAPENTIN 300 MG (NEURONTIN) CAP PO SCH (08:46)
[2018-05-15] MEDS ORDERED: fluCOnazole (DIFLUCAN) 100 MG TAB PO SCH (09:00)
[2018-05-15] MEDS ORDERED: FUROSEMIDE 40 MG (LASIX) TAB PO SCH (09:00)
[2018-05-15] MEDS ORDERED: SERTRALINE 50 MG (ZOLOFT) TABLET PO SCH (09:00)
[2018-05-15] MEDS ORDERED: amLODIPine 2.5MG (NORVASC) TAB PO SCH (09:00)
[2018-05-15] MEDS ORDERED: LORATADINE (CLARITIN) 10 MG TAB PO SCH (09:00)
[2018-05-15] MEDS ORDERED: TAMSULOSIN 0.4 MG (FLOMAX) CAP PO SCH (09:00)
--- NOTE | 2018-05-15 09:23 | Cardiology Progress Note ---
Cardiology SOAP Progress Note Subjective: No cardiac complaints. Objective: I&O/Vital Signs 05/15/18 05/15/18 05/15/18 04:00 08:02 09:28 Temp 97.1 99.1 Pulse 75 80 Resp 20 18 B/P (MAP) 134/71 (92) 154/81 (105) Pulse Ox 93 96 91 O2 Delivery Room Air Room Air Room Air 05/15/18 00:00 Intake Total 2760 ml Output Total 1800 ml Balance 960 ml Weight (Pounds): 286 Weight (Ounces): 3.0 Weight (Calculated Kilograms): 129.465932 Constitutional: appears stated age, AAO x 3; No apparent distress; well- developed, well-nourished Respiratory: No accessory muscle use, No respiratory distress, No chest tender , No chest expansion is symmetric; chest is bilaterally symmetric; No lungs clear to percussion; lungs clear to auscultation; No crackles, No rhonchi, No rales, No stridor, No wheezing, No pleural rub, No other Cardiovascular: regular rate-rhythm; No irregularly irregular, No extra beats, No parasternal heave is noted, No JVD, No edema, No bradycardia, No tachycardia , No point of maximal impulse, No cardiac thrills are palpable; S1 and S2; No gallop/S3, No gallop/S4, No diastolic murmur, No systolic murmur, No friction rub, No click, No other Gastrointestional: No tender, No soft, No round, No distended, No pulsatile mass, No organomegaly, No guarding, No rebound, No tenderness, No hernia, No mass, No audible bowel sounds, No abnormal bowel sounds, No abdominal bruits, No spleenomegaly, No other Extremities: No normal range of motion, No non-tender, No normal inspection, No pedal edema, No calf tenderness, No normal capillary refill, No pelvis stable , No calf tenderness, No inflammation, No pedal edema, No slow capillary refill , No swelling, No other, No abrasion, No clubbing, No cyanosis, No ecchymosis, No laceration, No no lower extremity edema bilateral, No significant edema, No tenderness, No wound Neurologic/Psychiatric: no motor/sensory deficits, alert, normal mood/affect, oriented x 3, power is 5/5 both on sides Skin: No normal color, No warm/dry, No cyanosis, No cool, No diaphoresis, No damp, No ecchymosis, No jaundice, No mottled, No pallor, No rash, No tattoos/ piercings, No ulcerations, No rash on exposed areas, No ulcerations on exposed areas, No other Results/Procedures: Labs Laboratory Tests 05/15/18 05:51: Sodium Level 141, Potassium Level 3.6, Chloride Level 109H, Carbon Dioxide Level 21, Anion Gap 11, Blood Urea Nitrogen 10, Creatinine 1.00, Estimat Glomerular Filtration Rate > 60, BUN/Creatinine Ratio 10, Glucose Level 95, Calcium Level 8.9, Corrected Calcium 9.6, Total Bilirubin 0.4, Aspartate Amino Transf (AST/SGOT) 16, Alanine Aminotransferase (ALT/SGPT) 8, Alkaline Phosphatase 50, Total Protein 5.7L, Albumin 3.1L Microbiology 05/12/18 Blood Culture - Preliminary, Resulted No growth 05/12/18 Influenza Types A,B Antigen (RUSLAN) - Final, Complete 05/12/18 Urine Culture - Final, Complete NO GROWTH A/P: Assessment/Dx: Orthostatic Hypotension, Near syncope, Acute kidney injury Plan: On admission Orthostatic blood pressure shows significant drop in blood pressure on standing up. Continue IV fluids. Discussed with him that he needs to have generous hydration status and decrease the amount of caffeinated drinks. Telemetry has been negative. However patient will need Holter and event monitor to rule out arrhythmias. I've also recommended to the nurse that the patient showed ambulate to demonstrate that he's does not have any further orthostatic changes. Near syncope: No evidence of arrhythmias at this point in time. Continue telemetry. Will likely require a Holter monitor and an event monitor on discharge. Echocardiogram did not show any significant LV dysfunction. Acute kidney injury: Likely secondary to significant dehydration. Thank you for your consultation. Please call me if you have any questions. Ronald Mendez MD, FACP, FACC, FSCAI, FHRS, CCDS Interventional Cardiology Cardiac Electrophysiology Vascular Medicine and Endovascular Interventions Focused Exam Lactate Level 05/12/18 15:58: Lactic Acid Level 2.13*H 05/12/18 18:12: Lactic Acid Level 2.23*H Chiquita MENDEZ MD May 15, 2018 9:23 am
[2018-05-15] MEDS: RT-ALBUTEROL/IPRATROPIUM 3 ML (DUONEB) VIAL INH SCH (09:28)
[2018-05-15 12:00] VITALS: BP 145/89
[2018-05-15 13:20] VITALS: BP 145/89
[2018-05-15 16:00] VITALS: BP 162/72
[2018-05-15] MEDS: cefTRIAXone 1 GM/NS 50 ML IVPB IV SCH ×2 (17:11)
[2018-05-15 18:10] VITALS: BP 162/72
--- NOTE | 2018-05-16 20:34 | Physician Query Clarification ---
PQ-Intro New Diagnosis Admission/Discharge Admission Date: May 12, 2018 at 20:00 Discharge Date: May 15, 2018 at 18:10 The medical record reflects the following clinical scenario: History/Risk Factors: syncope, orthostatic htn Clinical Findings: elevated lactic acid Treatment: IV fluids Question: What condition best reflects the above clinical scenario? Please document below. 1. Lactic Acidosis 2. Lab finding only 3. Other, with explanation of the clinical findings. 4. Clinically undetermined, no explanation for the clinical findings. PHYSICIAN RESPONSE What condition reflects above: 2 In responding to this query, please exercise your independent professional judgment. The purpose of this communication is to more accurately reflect the complexity of your patients condition. The fact that a question is asked does not imply that any particular answer is desired or expected. Thank you for your timely response to this clarification. Requestors name: [ ] Phone # [ ] THIS PHYSICIAN QUERY FORM IS A PERMANENT PART OF THE MEDICAL RECORD RAUL CRONIN May 16, 2018 20:34 LAZARO FREITAS DO May 16, 2018 21:28
--- NOTE | 2018-05-17 08:32 | Discharge Summary ---
Diagnosis/Chief Complaint Date of Admission May 12, 2018 at 20:00 Date of Discharge May 15, 2018 at 18:10 Discharge Date: May 15, 2018 Discharge Time: 08:29 Discharge Diagnosis Near syncope. Acute renal failure. Hypovolemia. Dehydration. COPD. Tobaccoism. Hypertension. Hypotension emergency room. Orthostatic hypotension. Obesity. Leukocytosis Discharge Summary Consultations Cardiology Discharge Physical Examination Allergies: Coded Allergies: codeine (Verified Allergy, Unknown, 04/25/07) morphine (Verified Allergy, Unknown, 04/25/07) Vitals & I&Os Vital Signs Date Time Temp Pulse Resp B/P (MAP) Pulse Ox O2 Delivery O2 Flow Rate FiO2 05/15/18 18:10 81 19 162/72 97 Room Air 2.00 05/15/18 16:00 97.6 05/13/18 12:15 32 Hospital Course Patient hospitals improved. Patient discharged home Labs (last 24 hrs) Laboratory Tests 05/12/18 15:00: White Blood Count 14.1H, Red Blood Count 4.36, Hemoglobin 13.3, Hematocrit 39L, Mean Corpuscular Volume 89, Mean Corpuscular Hemoglobin 31, Mean Corpuscular Hemoglobin Concent 34, Red Cell Distribution Width 13.1, Platelet Count 179, Mean Platelet Volume 10.6H, Neutrophils (%) (Auto) 88H, Lymphocytes (%) (Auto) 4L, Monocytes (%) (Auto) 9, Eosinophils (%) (Auto) 0, Basophils (%) (Auto) 0, Neutrophils # (Auto) 12.3H, Lymphocytes # (Auto) 0.5L, Monocytes # (Auto) 1.2H, Eosinophils # (Auto) 0.0, Basophils # (Auto) 0.0, Neutrophils % (Manual) 68, Lymphocytes % (Manual) 5, Monocytes % (Manual) 14, Band Neutrophils 13, Toxic Granulation 1+, Blood Morphology Comment NORMAL, Prothrombin Time 15.3H, INR Comment 1.2, Activated Partial Thromboplast Time 31, Sodium Level 136, Potassium Level 3.0L, Chloride Level 94L, Carbon Dioxide Level 28, Anion Gap 14 , Blood Urea Nitrogen 39H, Creatinine 2.46H, Estimat Glomerular Filtration Rate 26, BUN/Creatinine Ratio 16, Glucose Level 140H, Calcium Level 9.1, Corrected Calcium 9.3, Magnesium Level 2.1, Total Bilirubin 0.9, Aspartate Amino Transf ( AST/SGOT) 14, Alanine Aminotransferase (ALT/SGPT) 8, Alkaline Phosphatase 68, Total Creatine Kinase 80, Myoglobin 359.2H, Troponin I < 0.30, C-Reactive Protein High Sensitivity 11.39H, Total Protein 6.8, Albumin 3.7 05/12/18 15:52: Urine Color YELLOW, Urine Clarity CLEAR, Urine pH 5, Urine Specific [place] 1.010L, Urine Protein NEGATIVE, Urine Glucose (UA) NEGATIVE, Urine Ketones NEGATIVE, Urine Nitrite NEGATIVE, Urine Bilirubin NEGATIVE, Urine Urobilinogen NORMAL, Urine Leukocyte Esterase NEGATIVE, Urine RBC (Auto) NEGATIVE, Urine RBC NONE, Urine WBC NONE, Urine Squamous Epithelial Cells 0-2, Urine Crystals NONE, Urine Bacteria NEGATIVE, Urine Casts NONE, Urine Mucus NEGATIVE, Urine Culture Indicated NO 05/12/18 15:58: Lactic Acid Level 2.13*H 05/12/18 18:12: Lactic Acid Level 2.23*H 05/12/18 20:00: Lab Scanned Report Referred Lab Report 05/12/18 20:56: Troponin I < 0.30 05/13/18 06:16: White Blood Count 10.1, Red Blood Count 4.01L, Hemoglobin 12.1L, Hematocrit 36L , Mean Corpuscular Volume 90, Mean Corpuscular Hemoglobin 30, Mean Corpuscular Hemoglobin Concent 33, Red Cell Distribution Width 13.2, Platelet Count 140, Mean Platelet Volume 10.3, Neutrophils (%) (Auto) 76H, Lymphocytes (%) (Auto) 14 , Monocytes (%) (Auto) 9, Eosinophils (%) (Auto) 1, Basophils (%) (Auto) 0, Neutrophils # (Auto) 7.6, Lymphocytes # (Auto) 1.4, Monocytes # (Auto) 0.9, Eosinophils # (Auto) 0.1, Basophils # (Auto) 0.0, Sodium Level 139, Potassium Level 3.0L, Chloride Level 99, Carbon Dioxide Level 30, Anion Gap 10, Blood Urea Nitrogen 35H, Creatinine 1.73H, Estimat Glomerular Filtration Rate 38, BUN/ Creatinine Ratio 20, Glucose Level 102, Calcium Level 8.6, Corrected Calcium 9.3 , Total Bilirubin 0.5, Aspartate Amino Transf (AST/SGOT) 13, Alanine Aminotransferase (ALT/SGPT) 7, Alkaline Phosphatase 57, Total Protein 5.8L, Albumin 3.1L, Triglycerides Level 56, Cholesterol Level 107, LDL Cholesterol Direct 69, VLDL Cholesterol 11, HDL Cholesterol 25L 05/14/18 05:25: White Blood Count 6.5, Red Blood Count 3.74L, Hemoglobin 11.3L, Hematocrit 34L, Mean Corpuscular Volume 91, Mean Corpuscular Hemoglobin 30, Mean Corpuscular Hemoglobin Concent 33, Red Cell Distribution Width 13.3, Platelet Count 150, Mean Platelet Volume 10.2, Neutrophils (%) (Auto) 74, Lymphocytes (%) (Auto) 18 , Monocytes (%) (Auto) 7, Eosinophils (%) (Auto) 1, Basophils (%) (Auto) 0, Neutrophils # (Auto) 4.8, Lymphocytes # (Auto) 1.2, Monocytes # (Auto) 0.4, Eosinophils # (Auto) 0.1, Basophils # (Auto) 0.0, Sodium Level 142, Potassium Level 3.4L, Chloride Level 105, Carbon Dioxide Level 26, Anion Gap 11, Blood Urea Nitrogen 20H, Creatinine 1.18, Estimat Glomerular Filtration Rate 60, BUN/ Creatinine Ratio 17, Glucose Level 105, Calcium Level 8.7, Corrected Calcium 9.4 , Total Bilirubin 0.4, Aspartate Amino Transf (AST/SGOT) 13, Alanine Aminotransferase (ALT/SGPT) 7, Alkaline Phosphatase 54, Total Protein 5.9L, Albumin 3.1L 05/15/18 05:51: Sodium Level 141, Potassium Level 3.6, Chloride Level 109H, Carbon Dioxide Level 21, Anion Gap 11, Blood Urea Nitrogen 10, Creatinine 1.00, Estimat Glomerular Filtration Rate > 60, BUN/Creatinine Ratio 10, Glucose Level 95, Calcium Level 8.9, Corrected Calcium 9.6, Total Bilirubin 0.4, Aspartate Amino Transf (AST/SGOT) 16, Alanine Aminotransferase (ALT/SGPT) 8, Alkaline Phosphatase 50, Total Protein 5.7L, Albumin 3.1L Microbiology 05/12/18 Blood Culture - Preliminary, Resulted No growth 05/12/18 Influenza Types A,B Antigen (RUSLAN) - Final, Complete 05/12/18 Urine Culture - Final, Complete NO GROWTH Laboratory Tests 05/12/18 15:00 05/13/18 06:16 05/14/18 05:25 05/15/18 05:51 Pending Labs Microbiology Date/Time Source Procedure Growth Status 05/12/18 16:06 Peripheral Rt Ac Blood Culture - Preliminary No growth Resulted 05/12/18 15:58 Peripheral Lt Hand Blood Culture - Preliminary No growth Resulted 05/12/18 17:36 Nasopharynx Influenza Types A,B Antigen (RUSLAN) - Final Complete 05/12/18 15:52 Sputum Induced Gram Stain - Final Complete 05/12/18 15:52 Sputum Culture - Final Yeast species Usual upper respiratory wallace Complete 05/12/18 15:52 Urine Clean Catch Urine Culture - Final NO GROWTH Complete Laboratory Tests 05/12/18 15:00: White Blood Count 14.1, Red Blood Count 4.36, Hemoglobin 13.3, Hematocrit 39, Mean Corpuscular Volume 89, Mean Corpuscular Hemoglobin 31, Mean Corpuscular Hemoglobin Concent 34, Red Cell Distribution Width 13.1, Platelet Count 179, Mean Platelet Volume 10.6, Neutrophils (%) (Auto) 88, Lymphocytes (%) (Auto) 4, Monocytes (%) (Auto) 9, Eosinophils (%) (Auto) 0, Basophils (%) (Auto) 0, Neutrophils # (Auto) 12.3, Lymphocytes # (Auto) 0.5, Monocytes # (Auto) 1.2, Eosinophils # (Auto) 0.0, Basophils # (Auto) 0.0, Neutrophils % (Manual) 68, Lymphocytes % (Manual) 5, Monocytes % (Manual) 14, Band Neutrophils 13, Toxic Granulation 1+, Blood Morphology Comment NORMAL, Prothrombin Time 15.3, INR Comment 1.2, Activated Partial Thromboplast Time 31, Sodium Level 136, Potassium Level 3.0, Chloride Level 94, Carbon Dioxide Level 28, Anion Gap 14, Blood Urea Nitrogen 39, Creatinine 2.46, Estimat Glomerular Filtration Rate 26, BUN/Creatinine Ratio 16, Glucose Level 140, Calcium Level 9.1, Corrected Calcium 9.3, Magnesium Level 2.1, Total Bilirubin 0.9, Aspartate Amino Transf ( AST/SGOT) 14, Alanine Aminotransferase (ALT/SGPT) 8, Alkaline Phosphatase 68, Total Creatine Kinase 80, Myoglobin 359.2, Troponin I < 0.30, C-Reactive Protein High Sensitivity 11.39, Total Protein 6.8, Albumin 3.7 05/12/18 15:52: Urine Color YELLOW, Urine Clarity CLEAR, Urine pH 5, Urine Specific [place] 1.010, Urine Protein NEGATIVE, Urine Glucose (UA) NEGATIVE, Urine Ketones NEGATIVE, Urine Nitrite NEGATIVE, Urine Bilirubin NEGATIVE, Urine Urobilinogen NORMAL, Urine Leukocyte Esterase NEGATIVE, Urine RBC (Auto) NEGATIVE, Urine RBC NONE, Urine WBC NONE, Urine Squamous Epithelial Cells 0-2, Urine Crystals NONE, Urine Bacteria NEGATIVE, Urine Casts NONE, Urine Mucus NEGATIVE, Urine Culture Indicated NO 05/12/18 15:58: Lactic Acid Level 2.13 05/12/18 18:12: Lactic Acid Level 2.23 05/12/18 20:00: Lab Scanned Report Referred Lab Report 05/12/18 20:56: Troponin I < 0.30 05/13/18 06:16: White Blood Count 10.1, Red Blood Count 4.01, Hemoglobin 12.1, Hematocrit 36, Mean Corpuscular Volume 90, Mean Corpuscular Hemoglobin 30, Mean Corpuscular Hemoglobin Concent 33, Red Cell Distribution Width 13.2, Platelet Count 140, Mean Platelet Volume 10.3, Neutrophils (%) (Auto) 76, Lymphocytes (%) (Auto) 14 , Monocytes (%) (Auto) 9, Eosinophils (%) (Auto) 1, Basophils (%) (Auto) 0, Neutrophils # (Auto) 7.6, Lymphocytes # (Auto) 1.4, Monocytes # (Auto) 0.9, Eosinophils # (Auto) 0.1, Basophils # (Auto) 0.0, Sodium Level 139, Potassium Level 3.0, Chloride Level 99, Carbon Dioxide Level 30, Anion Gap 10, Blood Urea Nitrogen 35, Creatinine 1.73, Estimat Glomerular Filtration Rate 38, BUN/ Creatinine Ratio 20, Glucose Level 102, Calcium Level 8.6, Corrected Calcium 9.3 , Total Bilirubin 0.5, Aspartate Amino Transf (AST/SGOT) 13, Alanine Aminotransferase (ALT/SGPT) 7, Alkaline Phosphatase 57, Total Protein 5.8, Albumin 3.1, Triglycerides Level 56, Cholesterol Level 107, LDL Cholesterol Direct 69, VLDL Cholesterol 11, HDL Cholesterol 25 05/14/18 05:25: White Blood Count 6.5, Red Blood Count 3.74, Hemoglobin 11.3, Hematocrit 34, Mean Corpuscular Volume 91, Mean Corpuscular Hemoglobin 30, Mean Corpuscular Hemoglobin Concent 33, Red Cell Distribution Width 13.3, Platelet Count 150, Mean Platelet Volume 10.2, Neutrophils (%) (Auto) 74, Lymphocytes (%) (Auto) 18 , Monocytes (%) (Auto) 7, Eosinophils (%) (Auto) 1, Basophils (%) (Auto) 0, Neutrophils # (Auto) 4.8, Lymphocytes # (Auto) 1.2, Monocytes # (Auto) 0.4, Eosinophils # (Auto) 0.1, Basophils # (Auto) 0.0, Sodium Level 142, Potassium Level 3.4, Chloride Level 105, Carbon Dioxide Level 26, Anion Gap 11, Blood Urea Nitrogen 20, Creatinine 1.18, Estimat Glomerular Filtration Rate 60, BUN/ Creatinine Ratio 17, Glucose Level 105, Calcium Level 8.7, Corrected Calcium 9.4 , Total Bilirubin 0.4, Aspartate Amino Transf (AST/SGOT) 13, Alanine Aminotransferase (ALT/SGPT) 7, Alkaline Phosphatase 54, Total Protein 5.9, Albumin 3.1 05/15/18 05:51: Sodium Level 141, Potassium Level 3.6, Chloride Level 109, Carbon Dioxide Level 21, Anion Gap 11, Blood Urea Nitrogen 10, Creatinine 1.00, Estimat Glomerular Filtration Rate > 60, BUN/Creatinine Ratio 10, Glucose Level 95, Calcium Level 8.9, Corrected Calcium 9.6, Total Bilirubin 0.4, Aspartate Amino Transf (AST/ SGOT) 16, Alanine Aminotransferase (ALT/SGPT) 8, Alkaline Phosphatase 50, Total Protein 5.7, Albumin 3.1 Discharge Home Medications: Active Scripts Active Metoprolol Succinate 25 Mg Tab.er.24h 25 Mg PO DAILY 30 Days Diflucan (Fluconazole) 100 Mg Tablet 100 Mg PO DAILY 5 Days Reported Trazodone HCl 50 Mg Tablet 50 Mg PO HS Cyclobenzaprine HCl 10 Mg Tablet 10 Mg PO TID PRN Ventolin Hfa (Albuterol Sulfate) 1 Puff Puff 2 Puff IH TID PRN Naproxen 500 Mg Tablet 500 Mg PO BID WITH MEALS Hydrochlorothiazide 25 Mg Tablet 25 Mg PO DAILY Flomax (Tamsulosin HCl) 0.4 Mg Cap 0.4 Mg PO DAILY Gabapentin 300 Mg Capsule 300 Mg PO BID Furosemide 40 Mg Tablet 40 Mg PO DAILY Loratadine 10 Mg Tablet 10 Mg PO DAILY Metoprolol Succinate 25 Mg Tab.er.24h 25 Mg PO DAILY Zoloft (Sertraline HCl) 50 Mg Tablet 50 Mg PO DAILY Tramadol HCl 50 Mg Tablet 50 Mg PO BID Instructions to patient/family Please see electronic discharge instructions given to patient. Clinical Quality Measures DVT/VTE Risk/Contraindication: Risk Factor Score Per Nursin RFS Level Per Nursing on Admit: 4+=Very High LALO LAMBERT DO May 17, 2018 08:32
--- NOTE | 2018-05-18 14:58 | Physician Query Clarification ---
PQ-Intro New Diagnosis Admission/Discharge Admission Date: May 12, 2018 at 20:00 Discharge Date: May 15, 2018 at 18:10 The medical record reflects the following clinical scenario: History/Risk Factors: Acute Bronchitis Clinical Findings: Yeast in sputum Treatment: Diflucan Question: What condition best reflects the above clinical scenario? Please document below. 1. Yeast infection of upper respiratory tract or bronchus 2. Abnormal sputum culture only 3. Other, with explanation of the clinical findings. 4. Clinically undetermined, no explanation for the clinical findings. PHYSICIAN RESPONSE What condition reflects above: 1 In responding to this query, please exercise your independent professional judgment. The purpose of this communication is to more accurately reflect the complexity of your patients condition. The fact that a question is asked does not imply that any particular answer is desired or expected. Thank you for your timely response to this clarification. Requestors name: [ ] Phone # [ ] THIS PHYSICIAN QUERY FORM IS A PERMANENT PART OF THE MEDICAL RECORD RAUL CRONIN May 18, 2018 14:58 LALO LAMBERT DO May 21, 2018 07:21
== END 2018-05-15 08:03 | disposition home or self-care (01) ==
LOC: EDUNIT# 14:47 → ER 14:49 → ICU 17:53 → UNDOADMIN 17:53 → ICU 19:09 → UNDOADMIN 20:00 → ICU 20:00 → 4TH 05-13 00:20 → ICU 05-13 00:20 → UNDODISIN 05-15 18:10
PROVIDERS: ADMIT Internal Medicine; ATTEND Internal Medicine
DX: N17.9 Acute kidney failure, unspecified (principal); E86.0 Dehydration; E86.1 Hypovolemia; B37.1 Pulmonary candidiasis; I95.1 Orthostatic hypotension; I49.3 Ventricular premature depolarization; J20.9 Acute bronchitis, unspecified; I10 Essential (primary) hypertension; I44.0 Atrioventricular block, first degree; M54.6 Pain in thoracic spine; F17.210 Nicotine dependence, cigarettes, uncomplicated; F17.220 Nicotine dependence, chewing tobacco, uncomplicated; D72.829 Elevated white blood cell count, unspecified; E87.6 Hypokalemia; E66.9 Obesity, unspecified; G62.9 Polyneuropathy, unspecified; M48.00 Spinal stenosis, site unspecified; M19.91 Primary osteoarthritis, unspecified site; G47.9 Sleep disorder, unspecified; F32.9 Major depressive disorder, single episode, unspecified; J30.2 Other seasonal allergic rhinitis; Z68.36 Body mass index [BMI] 36.0-36.9, adult
CPT/HCPCS: 36415; 71045; 71250; 74176; 80053; 80061; 81000; 82550; 83605; 83735; 83874; 84484; 85007; 85025; 85027; 85610; 85730; 86141; 87040; 87070; 87088; 87205; 87804; 93005; 93041; 93306; 94640; 94664; 94760; 96361; 96365; 96375

== ENCOUNTER → 2018-05-29 | Outpatient (CLI) | payer MEDICARE ==
[~2018-05-29] MED LIST changes: +FLUC100T PO; +FURO40TA4 PO; +GABA-488 PO; +HYDR25TA4 PO; +LORA10TA7 PO; +METO-387 PO; +NAPR-915 PO; +RT-ALBUINH IH; +SERT50TA2 PO; +TAMS0.4C98 PO; +TRAZ-189 PO
--- NOTE | 2018-05-29 11:28 | Diagnostic Imaging Report ---
Chest and right ribs. Indication: Injury, chest pain. The heart size is within normal limits and stable when compared to 05/13/2018. The lungs are clear. There is no sign of failure, pneumonia or pleural effusion. There is no pneumothorax or pulmonary contusion identified either. The images of the right wrist fail to show any sign of a displaced rib fracture. 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 The total shoulder prosthesis on the left seen previously is also again visualized. Impression: There is no evidence for any acute cardiopulmonary or bony abnormality. Dictated by: Dictated on workstation # [id number]
--- NOTE | 2018-05-29 11:32 | Diagnostic Imaging Report ---
EXAMINATION: Left humerus at 11:09 a.m. INDICATION: Fell, arm pain. FINDINGS: Four views were obtained. There are no prior studies available for comparison. 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 The prosthetic components seem to be in good position. There is no fracture or acute bony abnormality evident. 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 The soft tissues are unremarkable. IMPRESSION: 1. There is no evidence for an acute bony abnormality. 2. The total shoulder prosthesis seems to be in good position. Dictated by: Dictated on workstation # [id number]
== END ==
LOC: RAD 10:26
PROVIDERS: ATTEND Family Medicine
DX: S29.9XXA Unspecified injury of thorax, initial encounter (principal); M79.622 Pain in left upper arm; W17.2XXA Fall into hole, initial encounter; Z96.611 Presence of right artificial shoulder joint
CPT/HCPCS: 71101; 73060

== ENCOUNTER → 2018-07-03 | Outpatient (CLI) | payer MEDICARE ==
--- NOTE | 2018-07-03 11:58 | Diagnostic Imaging Report ---
CLINICAL INDICATION: Patient with onset of diplopia one week ago. EXAMINATION: Axial CT scan of the brain performed without IV contrast. COMPARISON: Head CT without contrast dated 08/07/2016. FINDINGS: Stable diffuse brain parenchymal volume loss with the frontal lobes affected the most. There is no evidence of interval acute cerebral infarct, intracranial hemorrhage, brain herniation, or midline shift. There is no hydrocephalus. There is normal iyer-white matter distinction. The extra cranial soft tissue, skull, and orbits are unremarkable. Paranasal sinuses are clear. Mastoid air cells show no significant abnormality. IMPRESSION: Stable CT scan of the brain with no evidence of interval acute intracranial process. Dictated by: Dictated on workstation # [id number]
== END ==
LOC: EDBD → RAD 11:39
PROVIDERS: ATTEND Family Medicine
DX: H53.2 Diplopia (principal)
CPT/HCPCS: 70450